=== PATIENT | female | born 1945 | race Caucasian/White ===

== ENCOUNTER 2018-09-26 16:12 | Inpatient (IN) ==
[2018-09-26 18:23] LABS: BASO# 0.04 X1000 (0.0-0.2); BASO% 0.4 % (0.0-0.8); EOS# 0.03 X1000 (0.0-0.7); EOS% 0.3 % (0.0-10.0); HEMOGLOBIN 16.1 g/dL (12.0-16.0); IMM GRAN# 0.02 X1000 (0.0-0.04); IMM GRAN% 0.2 % (0.0-0.5); LYMPH# 1.44 X1000 (1.2-3.4); LYMPH% 12.7 % (20.5-51.1); MCH 28.6 PG (27-31); MCHC 32.2 g/dL (33-37); MCV 88.8 FL (81-99); MONO# 0.34 X1000 (0.11-0.59); NEUT# 9.49 X1000 (1.4-6.5); NEUT% 83.4 % (42.2-75.2); PLT 247 X1000 (130-400); RBC 5.63 XMIL (4.2-5.4); WBC 11.36 X1000 (4.8-10.8)
[2018-09-26 18:32] LABS: ALLEN TEST YES; BE 11.3 mmoll (-3.0-3.0); BLOOD TYPE ARTERIAL; HCO3-(ACT) 33.4 mmoll (20.0-26.0); METHB 1.3 % (0.0-1.5); O2(CT) 20.1 mL/dL (15.0-23.0); PO2(98.6) 67 mmHg (60-100); SAMPLE BLOOD; SAO2 96.6 % (95.0-100.0); THB 16.3 g/dL (11.5-17.4); pH(98.6) 7.43 (7.35-7.45)
[2018-09-26 18:33] LABS: MODALITY CANNULA
[2018-09-26 18:35] LABS: PCO2(98.6) 58 mmHg (35-45)
[2018-09-26 18:36] LABS: O2HB 87.8 % (95.0-99.0)
[2018-09-26 18:47] LABS: AGAP 11; ALB/GLOB RATIO 1.1; ALBUMIN 4.3 g/dL (3.5-5.0); ALKALINE PHOSPHATASE 74 U/L (32-104); BUN 12 mg/dL (8-22); CALCIUM 9.8 mg/dL (8.8-10.2); CHLORIDE 94 mmol/L (98-107); COSMO 288; CREATININE 0.8 mg/dL (0.5-0.9); ESTIMATED GFR > 60; GLUCOSE 194 mg/dL (70-104); GOT 14 U/L (10-30); GPT 11 U/L (10-36); POTASSIUM 4.3 mmol/L (3.5-5.1); SODIUM 142 mmol/L (136-145); TCO2 37 mmol/L (25-35); TOTAL BILIRUBIN 0.29 mg/dL (0.20-1.00); TOTAL PROTEIN 8.1 g/dL (6.3-8.3)
[2018-09-26 20:00] LABS: URINE SOURCE CLEAN CATCH
[2018-09-26 20:04] LABS: BILIRUBIN URINE NEGATIVE (NEGATIVE); BLOOD URINE NEGATIVE (NEGATIVE); COLOR YELLOW; GLUCOSE URINE NEGATIVE (NEGATIVE); KETONE URINE NEGATIVE (NEGATIVE); LEUKOCYTES URINE NEGATIVE (NEGATIVE); NITRITE URINE NEGATIVE (NEGATIVE); PH URINE 6.5; PROTEIN URINE TRACE mg/dL (NEGATIVE); SP GRAVITY URINE 1.007; TURBIDITY URINE CLEAR (CLEAR); UR EPITHELIAL CELLS <10 /HPF (<10); URINE BACTERIA 1+ /HPF; URINE RBC <10 /HPF (<10); URINE WBC <10 /HPF (<10); UROBILINOGEN URINE NORMAL (NORMAL)
[2018-09-26] MEDS: ROCEPHIN 1 GM in NS 50 ML IV SCH (20:23)
[2018-09-26] MEDS: SOLU-MEDROL IV SCH (20:23)
[2018-09-26] MEDS: NEURONTIN PO SCH (20:24)
[2018-09-26] MEDS ORDERED: VALIUM PO SCH (21:00)
[2018-09-26] MEDS: DUONEB (A & A) INH SCH (22:45)
[2018-09-27] MEDS: SOLU-MEDROL IV SCH ×4 (02:51→20:31)
[2018-09-27] MEDS: DUONEB (A & A) INH SCH ×4 (03:17→22:23)
[2018-09-27] MEDS: NORCO-7.5 PO PRN ×2 (03:55→20:31)
--- NOTE | 2018-09-27 07:42 | EKG Report ---
Test Performed on : 09/26/2018 6:11:22 PM Test Reason : COPD Blood Pressure : / mmHG Vent. Rate : 104 BPM Atrial Rate : 104 BPM P-R Int : 132 ms QRS Dur : 088 ms QT Int : 368 ms P-R-T Axes : 069 073 068 degrees QTc Int : 483 ms Sinus tachycardia. Otherwise normal ECG When compared with ECG of 23-APR-2018 17:47, No significant change was found Unconfirmed Result
[2018-09-27] MEDS: NEURONTIN PO SCH ×3 (08:43→20:31)
--- NOTE | 2018-09-27 09:43 | PROGRESS NOTE ---
DATE: 09/27/2018 Ms. Recinos when she was seen in the office, her O2 saturation was 87 with her using oxygen 2 L per nasal cannula. She has severe COPD, and has persistent cough. She has acute exacerbation. We are treating her with IV antibiotics as well as steroids and respiratory therapy. We will have a Pulmonary consult on her. The arterial blood gases revealed pH 7.43, pCO2 58, and PO2 is 67. -5 cc: Gerardo Helton MD
--- NOTE | 2018-09-27 10:02 | HISTORY AND PHYSICAL ---
Ms. Recinos is a 73-year-old white female, was admitted with severe shortness of breath. She came to the office with persistent cough with expectoration, shortness of breath. She has been using breathing treatments at home, has been on oxygen. Her O2 sat was 87. She was in respiratory failure with acute exacerbation of COPD and so we decided to admit her to the hospital. She continues to smoke some. PAST SURGICAL HISTORY: Cholecystectomy. She had bilateral multiple knee surgeries as well as surgeries on her feet and the left hand. The knee surgeries were for arthritis. Most of them were arthroscopic surgeries. She also had a fracture of the of the left knee. PAST MEDICAL HISTORY: She has COPD for a long time now. She also has borderline diabetes and she does not drink. ALLERGIES: She is allergic to colistimethate, ibuprofen, levofloxacin. MEDICATIONS: Include DuoNeb, Valium, gabapentin, Osprey 7.5. REVIEW OF SYSTEMS: Other than shortness of breath, cough with expectoration, it is noncontributory. PHYSICAL EXAMINATION: VITAL SIGNS: Reveal temperature normal, pulse 77 per minute, blood pressure 128/55. HEENT: Head normocephalic. Pupils PERRLA. Fundus examination normal. NECK: Supple. JVP normal. ENT: Examination unremarkable. There is no evidence of lymphadenopathy, thyroid enlargement, pedal edema, calf tenderness, anemia or clubbing. There is mild cyanosis. BREAST EXAM: Normal chest, normal inspection. LUNGS: Reveal bilateral expiratory wheezing. PMI in the normal position. HEART: Sounds normal. No murmur, gallop or rub noted. ABDOMEN: Nondistended. Hernial orifices normal. No guarding, rigidity, free fluid, masses, or organomegaly. Bowel sounds normal. RECTAL: Deferred. INTERVENTIONAL RADIOLOGY TECHNOLOGIST: Higher functions normal. Cranial nerves normal. Motor and sensory system examination unremarkable. Deep tendon reflexes normal. Plantars downgoing. Skull and spine examination normal for age. No cerebellar signs or signs of meningeal irritation on locomotor exam. SKIN: Unremarkable. CLINICAL IMPRESSION: 1. Acute respiratory failure. 2. Acute exacerbation of COPD. 3. Borderline diabetes. PLAN: Start IV steroids, antibiotics and respiratory therapy. cc: Gerardo Helton MD
--- NOTE | 2018-09-27 10:13 | Diag Imaging Result Doc PS360 ---
CHEST-2 VIEWS - 09/26/2018 INDICATION: COPD COMPARISON: 06/18/2018 FINDINGS: There has been resolution of the opacification in the lateral left costophrenic angle. There is some persistent linear atelectasis in the right midlung. There are persistent increased markings in the lung bases bilaterally suggesting mild pulmonary edema, fibrosis, or bronchitis. Heart size is top normal. No pneumothorax or pleural effusion. IMPRESSION: Slight improvement from prior. Electronically signed by Spenser Garcia 09/27/2018 10:11 AM
[2018-09-27] MEDS: NICODERM PATCH TD SCH (11:29)
[2018-09-27] MEDS: VALIUM PO SCH ×2 (14:42→20:31)
[2018-09-27 15:45] LABS: URINE BACTERIA NEGATIVE /HFP; URINE CAST NONE SEEN /LPF; URINE CRYSTAL NONE SEEN /HPF; URINE EPITHELIAL CELLS <10 /HPF (<10); URINE RBC <10 /HPF (<10); URINE YEAST NONE SEEN /HPF
--- NOTE | 2018-09-27 18:48 | CONSULTATION ---
DATE OF CONSULTATION: 09/27/2018 REQUESTING PROVIDER: Dr. Gerardo Helton. REASON FOR CONSULTATION: COPD exacerbation. HISTORY OF PRESENT ILLNESS: This is a 73-year-old female with a medical history of COPD, chronic hypoxemic hypercapnic respiratory failure, morbid obesity, diabetes, hypertension, osteoarthritis, recurrent urinary tract infections, chronic pain syndrome, severe anxiety, and peripheral arterial disease. She has been directly admitted from Dr. Helton's office since yesterday with severe shortness of breath and persistent cough with expectoration. Initially workup revealed acute on chronic hypoxemic respiratory failure secondary to COPD exacerbation. At the time of my examination, she reports increasing oxygen requirement at home from 2L up to 3L. she reported drippling and oliguria in the last couple of weeks. She also reports severe weakness and tiredness in last couple days. She says she has CPAP at home but she barely uses is because she cannot tolerate it. She reports no nausea, vomiting, diarrhea, chest pain, or palpitation. PAST MEDICAL/SURGICAL HISTORY: 1. COPD with ongoing tobacco use, on home oxygen and Breo. 2. Chronic hypoxemic hypercapnic respiratory failure. On continuous oxygen of 2L at home. 3. Morbid obesity, BMI 36.74. 4. Diabetes. 5. Hypertension. 6. Osteoarthritis. 7. Recurrent urinary tract infections. 8. Chronic pain syndrome, on Lyford 7.5. 9. Anxiety. 10. Peripheral arterial disease in both legs. 11. Toe surgery. 12. Left neck surgery for a fracture through the lower part of the thigh into the knee joint. 13. Cholecystectomy. SOCIAL HISTORY: Ongoing tobacco use. No alcohol or illicit drug use. FAMILY HISTORY: Reviewed and noncontributory. ALLERGIES: Colistimethate sodium, ibuprofen, levofloxacin. REVIEW OF SYSTEMS: A 10 point review of systems was conducted and the pertinent is listed within the HPI, otherwise noncontributory. PHYSICAL EXAMINATION: Vital Signs: Temperature 97.1 degrees, blood pressure 138/63, pulse 93, respiratory rate 18, oxygen saturation 90% on nasal cannula at 2 L. General: Obese, resting comfortably in bed, in no acute distress. Later patient's granddaughter came inside the room. They apparently had some arguing going on and the patient became anxious. HEENT: Atraumatic. Trachea midline. Mucosa pink and dry. Respiratory: Lung expansion equal bilaterally. Auscultation revealed diminished breathing sounds bilaterally, prolonged expiratory phase, scattered wheezing, and rhonchi. Cardiovascular: Regular rate and rhythm. Distant heart sounds. Gastrointestinal: Normoactive bowel sounds in all 4 quadrants, semi-formed. Distended with tenderness on palpation. Extremities: No pedal edema. No cyanosis. No clubbing noted. Neurologic: Alert and oriented x3. Speech fluent. Follow commands. IMAGING DATA: Chest x-ray from yesterday revealed resolution of the opacification in the lateral low costophrenic angle. Some persistent linear atelectasis in the right mid lung. Persistent increased markings in the lung bases bilaterally suggesting mild pulmonary edema, fibrosis, or bronchitis. ASSESSMENT: This is a 73-year-old female with a medical history of COPD and chronic hypoxemic hypercapnic respiratory failure, morbid obesity, diabetes, hypertension, osteoarthritis, recurrent urinary tract infection, chronic pain syndrome, severe anxiety, and peripheral arterial disease. She has been directly admitted from Dr. Helton's office for chronic obstructive pulmonary disease exacerbation. 1. Chronic obstructive pulmonary disease exacerbation. 2. Tobacco abuse. 3. Acute on chronic hypoxemic hypercapnic respiratory failure. Improved. On 2L oxygen now. PLAN: 1. Continue supplemental oxygen as needed. 2. BiPAP at bedtime and as needed. 3. Educate patient on the importance and the means of smoking cessation. 4. Follow up with chest x-ray, ABG, CBC and BMP. 5. Continue antibiotics, steroid, and bronchodilators. 6. Continue GI and DVT prophylaxis. 7. Further recommendations pending her hospital course. Thank you for the courtesy of this consult. Dictated by JOSEFA Mcihael for Abdelrahman Sierra MD cc: JOSEFA Michael MD Amit V. Vora, MD [facility] H[facility]PITALSaravanan
[2018-09-27] MEDS: DESYREL PO SCH (20:31)
[2018-09-27] MEDS: ROCEPHIN 1 GM in NS 50 ML IV SCH (20:32)
[2018-09-28] MEDS: DUONEB (A & A) INH SCH ×4 (03:03→22:13)
[2018-09-28] MEDS: SOLU-MEDROL IV SCH ×3 (03:06→17:09)
[2018-09-28] MEDS ORDERED: NICODERM PATCH TD SCH (09:00)
[2018-09-28] MEDS: VALIUM PO SCH ×2 (10:16→21:37)
[2018-09-28] MEDS: NORCO-7.5 PO PRN ×2 (10:17→16:10)
[2018-09-28] MEDS: NEURONTIN PO SCH ×3 (10:17→21:37)
[2018-09-28] MEDS: NICODERM PATCH TD SCH (10:17)
[2018-09-28] MEDS ORDERED: SOLU-MEDROL IV SCH (11:15)
--- NOTE | 2018-09-28 11:30 | PROGRESS NOTE ---
DATE: 09/28/2018 SUBJECTIVE: Ms. Recinos Is doing better. She has chronic respiratory failure with acute exacerbation now. Physical exam otherwise is unchanged. She is getting diazepam 5 mg b.i.d., and I personally do not feel like we need to increase anything at bedtime. She is asking for something more for sleep. She is on methylprednisone, which we will try to cut down on the dose of methylprednisone. -4 cc: Gerardo Helton MD
[2018-09-28] MEDS ORDERED: LINZESS PO ONE (16:20)
[2018-09-28] MEDS: ROCEPHIN 1 GM in NS 50 ML IV SCH (21:33)
[2018-09-28] MEDS: DESYREL PO SCH (21:37)
[2018-09-29] MEDS: NORCO-7.5 PO PRN ×4 (01:05→22:03)
[2018-09-29] MEDS: DUONEB (A & A) INH SCH ×4 (03:27→21:50)
[2018-09-29] MEDS: SOLU-MEDROL IV SCH ×3 (06:11→21:56)
[2018-09-29] MEDS: LOVENOX SUBQ SCH (06:11)
[2018-09-29] MEDS: LINZESS PO SCH (06:11)
[2018-09-29] MEDS: NEURONTIN PO SCH ×3 (08:10→21:56)
[2018-09-29] MEDS: VALIUM PO SCH ×2 (08:10→21:56)
[2018-09-29] MEDS: NICODERM PATCH TD SCH (08:11)
--- NOTE | 2018-09-29 12:52 | PROGRESS NOTE ---
DATE: 09/29/2018 Ms. Recinos is having some respiratory distress. She had to be on the BiPAP last night. She has moved her bowels now. We are trying to cut down on her steroids. Overall condition is unchanged. Continue with the current management on her. -9 cc: Gerardo Helton MD
[2018-09-29] MEDS: ZOFRAN PO PRN (15:30)
--- NOTE | 2018-09-29 16:51 | PULMONOLOGY PROGRESS NOTE ---
DATE: 09/29/2018 SUBJECTIVE: The patient is awake, alert, and conversant. She reports her shortness of breath has diminished. OBJECTIVE: Vital Signs: BP 114/42, heart rate 87, respiratory rate 16, oxygen saturation 94% on 3 L per nasal cannula. HEENT: Pupils are equal and reactive. Oropharynx is clear. Neck: Is supple. Chest: Reveals prolonged expiratory phase with bilateral wheezing. Cardiac: S1, S2. Abdomen: Obese and soft. Extremities: Without edema. IMPRESSION: A 73-year-old with chronic obstructive pulmonary disease exacerbation, acute hypoxemic respiratory failure, ongoing tobacco use, and obesity. RECOMMENDATION: 1. Agree with steroid weaning as you are doing. 2. Continue oxygen for hypoxemic respiratory failure. 3. Strongly encouraged patient to discontinue all tobacco products. cc: MD Gerardo Tadeo MD
[2018-09-29] MEDS: KLOR-CON PO SCH (21:56)
[2018-09-29] MEDS: ROCEPHIN 1 GM in NS 50 ML IV SCH (21:56)
[2018-09-29] MEDS: DESYREL PO SCH (21:56)
[2018-09-30] MEDS: ZOFRAN PO PRN (02:40)
[2018-09-30] MEDS: DUONEB (A & A) INH SCH ×4 (03:54→22:40)
[2018-09-30] MEDS: LINZESS PO SCH ×3 (05:54→09:07)
[2018-09-30] MEDS: SOLU-MEDROL IV SCH ×2 (05:54→17:24)
[2018-09-30] MEDS: LOVENOX SUBQ SCH ×2 (05:54→05:59)
[2018-09-30 06:50] LABS: AGAP 7; BUN 22 mg/dL (8-22); CALCIUM 9.1 mg/dL (8.8-10.2); CHLORIDE 95 mmol/L (98-107); COSMO 296; CREATININE 0.7 mg/dL (0.5-0.9); ESTIMATED GFR > 60; GLUCOSE 332 mg/dL (70-104); POTASSIUM 4.7 mmol/L (3.5-5.1); SODIUM 140 mmol/L (136-145); TCO2 38 mmol/L (25-35)
[2018-09-30] MEDS: VALIUM PO SCH ×2 (09:06→22:06)
[2018-09-30] MEDS: KLOR-CON PO SCH ×2 (09:06→22:06)
[2018-09-30] MEDS: NICODERM PATCH TD SCH (09:07)
[2018-09-30] MEDS: NORCO-7.5 PO PRN ×3 (09:07→22:06)
[2018-09-30] MEDS: NEURONTIN PO SCH ×3 (09:07→22:06)
--- NOTE | 2018-09-30 12:20 | PROGRESS NOTE ---
DATE: 09/30/2018 SUBJECTIVE: Ms. Recinos is doing better. She says she is feeling weak. We are cutting down on the steroids as respirations are improving. She has some bilateral wheezing. She was seen by Dr. Guy yesterday. She is indicating the desire to go to the rehab. We will probably have to ask for Physical Therapy to see her. -4 cc: Gerardo Helton MD
--- NOTE | 2018-09-30 20:15 | PULMONOLOGY PROGRESS NOTE ---
DATE: 09/30/2018 SUBJECTIVE: The patient reports some nausea and is holding off on using her BiPAP today. She reports her breathing has improved. OBJECTIVE: Vital Signs: The patient has been afebrile for the last 24 hours. Blood pressure 116/53, heart rate 89, respiratory rate 18, oxygen saturation 91% on 3 L per nasal cannula. HEENT: Pupils are equal and reactive. Oropharynx is clear. Neck: Supple. Chest: Reveals prolonged expiratory phase with expiratory wheezing present. Cardiac: S1, S2. Abdomen: Obese and soft. Extremities: Reveal trace edema. LABORATORIES: Sodium 140, potassium 4.7, chloride 95, bicarbonate 38, BUN 22, creatinine 0.7. IMPRESSION: A 73-year-old with COPD exacerbation, acute hypoxemic respiratory failure, obesity and ongoing tobacco use. RECOMMENDATIONS: 1. Continue current treatment regimen for COPD exacerbation. 2. Continue oxygen for hypoxemic respiratory failure. 3. Strongly encourage patient to discontinue all tobacco products. 4. Anticipate discharge to rehab if this can be arranged. cc: MD Gerardo Tadeo MD
[2018-09-30] MEDS: DESYREL PO SCH (22:06)
[2018-09-30] MEDS: ROCEPHIN 1 GM in NS 50 ML IV SCH (22:06)
[2018-10-01] MEDS: DUONEB (A & A) INH SCH ×4 (03:51→23:17)
[2018-10-01] MEDS: NORCO-7.5 PO PRN ×3 (04:07→15:54)
[2018-10-01] MEDS: SOLU-MEDROL IV SCH ×2 (06:14→17:02)
[2018-10-01] MEDS: LOVENOX SUBQ SCH (06:16)
[2018-10-01] MEDS: LINZESS PO SCH (06:16)
[2018-10-01] MEDS: NEURONTIN PO SCH ×3 (09:12→22:00)
[2018-10-01] MEDS: VALIUM PO SCH ×2 (09:13→22:08)
[2018-10-01] MEDS: NICODERM PATCH TD SCH (09:13)
[2018-10-01] MEDS: KLOR-CON PO SCH ×2 (09:13→22:01)
[2018-10-01] MEDS: MIRALAX PO SCH (09:13)
--- NOTE | 2018-10-01 09:14 | PROGRESS NOTE ---
DATE: 10/01/2018 Ms. Recinos's electrolyte status is normal. She was nauseous last night. Blood sugar has been elevated partly because of the steroids that she is getting. We are going to cut down further on the methylprednisolone that she is getting. We will continue with the current management. She wants to be placed in rehab also. She has chronic respiratory failure. She is a chronic smoker. Overall condition is unchanged. -4 cc: Gerardo Helton MD
[2018-10-01] MEDS: ROCEPHIN 1 GM in NS 50 ML IV SCH (21:56)
[2018-10-01] MEDS: DESYREL PO SCH (22:00)
--- NOTE | 2018-10-02 00:55 | PULMONOLOGY PROGRESS NOTE ---
DATE: 10/01/2018 SUBJECTIVE: The patient is awake and alert. She reports she had some nausea yesterday evening and did not wear the BiPAP. She reports she feels better today and her dyspnea has diminished. OBJECTIVE: Vital Signs: The patient has been afebrile for the last 24 hours. Blood pressure 133/64, heart rate 82, respiratory rate 16, oxygen saturation 92% on nasal cannula. HEENT: Pupils are equal and reactive. Oropharynx is clear. Neck: Is supple. Chest: Reveals prolonged expiratory phase. Her wheezing has significantly decreased. Cardiac exam: S1-S2. Abdomen: Is soft and obese. Extremities: Reveal trace edema. IMPRESSION: A 73-year-old with 1. Chronic obstructive pulmonary disease exacerbation. 2. Acute hypoxemic respiratory failure. 3. Ongoing tobacco use. 4. Obesity. The patient continues to improve. RECOMMENDATION: 1. Continue to encourage patient to stop smoking. 2. Agree with steroid taper as you are doing. 3. Wean oxygen as tolerated. 4. Anticipate discharge to rehab in the near future. cc: MD Gerardo Tadeo MD
[2018-10-02] MEDS: DUONEB (A & A) INH SCH ×4 (03:27→23:39)
[2018-10-02] MEDS: ZOFRAN PO PRN (04:58)
[2018-10-02] MEDS: SOLU-MEDROL IV SCH (06:02)
[2018-10-02] MEDS: LINZESS PO SCH (06:02)
[2018-10-02] MEDS: LOVENOX SUBQ SCH (06:02)
[2018-10-02] MEDS: NICODERM PATCH TD SCH (08:46)
[2018-10-02] MEDS: VALIUM PO SCH (08:46)
[2018-10-02] MEDS: KLOR-CON PO SCH ×2 (08:46→22:43)
[2018-10-02] MEDS: NEURONTIN PO SCH ×3 (08:46→22:43)
[2018-10-02] MEDS: MIRALAX PO SCH (08:46)
--- NOTE | 2018-10-02 09:03 | PROGRESS NOTE ---
DATE: 10/02/2018 SUBJECTIVE: Ms. Recinos is slowly improving. She has periods of drowsiness. She continues to smoke when she goes home. She has some expiratory wheezing. We are tapering her steroids, and I think we will keep her on oral prednisone for now. She is also being followed by Dr. Guy. -1 cc: Gerardo Helton MD
[2018-10-02 14:37] LABS: ALLEN TEST YES; BE 16.6 mmoll (-3.0-3.0); BLOOD TYPE ARTERIAL; HCO3-(ACT) 37.6 mmoll (20.0-26.0); O2(CT) 18.2 mL/dL (15.0-23.0); PO2(98.6) 59 mmHg (60-100); SAMPLE BLOOD; SAO2 92.9 % (95.0-100.0); THB 14.5 g/dL (11.5-17.4); pH(98.6) 7.32 (7.35-7.45)
[2018-10-02 14:42] LABS: MODALITY CANNULA; PCO2(98.6) 93 mmHg (35-45)
[2018-10-02] MEDS: ROCEPHIN 1 GM in NS 50 ML IV SCH (19:59)
--- NOTE | 2018-10-02 21:42 | PULMONOLOGY PROGRESS NOTE ---
DATE: 10/02/2018 SUBJECTIVE: The patient has had less nausea today. She is currently wearing the BiPAP. She is sleeping but arousable. OBJECTIVE: Vital Signs: The patient has been afebrile for the last 24 hours. Blood pressure 119/61, heart rate 71, respiratory rate 16, oxygen saturation 96% on BiPAP. HEENT: Pupils are equal and reactive. Oropharynx evaluation is limited with BiPAP in place. Neck: Supple. Chest: Reveals prolonged expiratory phase with distant wheezing. Cardiac exam: S1, S2. Abdomen: Obese and soft. Extremities: Reveal trace edema. LABORATORIES: No new chemistries. Arterial blood gas this afternoon revealed pH 7.32, pCO2 of 93, pO2 of 59. IMPRESSION: A 73-year-old with severe chronic obstructive pulmonary disease. The patient was slightly hypersomnolent today with increase in CO2, but not enough to explain her somnolence. Her Valium has been discontinued. Patient is likely very sensitive to benzodiazepines. RECOMMENDATIONS: 1. Continue BiPAP through the evening. 2. Encourage patient to discontinue tobacco. 3. Long-term patient would benefit from weight loss. 4. We will follow up with a chest x-ray and an arterial blood gas tomorrow morning. cc: MD Gerardo Tadeo MD
[2018-10-02] MEDS: NORCO-7.5 PO PRN (22:43)
[2018-10-02] MEDS: DESYREL PO SCH (22:44)
[2018-10-02] MEDS: PREDNISONE PO SCH (22:44)
[2018-10-03] MEDS: DUONEB (A & A) INH SCH ×4 (03:00→21:25)
[2018-10-03 05:11] LABS: ALLEN TEST YES; BE 15.3 mmoll (-3.0-3.0); BLOOD TYPE ARTERIAL; HCO3-(ACT) 36.8 mmoll (20.0-26.0); METHB 1.2 % (0.0-1.5); O2(CT) 19.3 mL/dL (15.0-23.0); O2HB 95.9 % (95.0-99.0); PO2(98.6) 109 mmHg (60-100); SAMPLE BLOOD; SAO2 99.2 % (95.0-100.0); THB 14.2 g/dL (11.5-17.4); pH(98.6) 7.35 (7.35-7.45)
[2018-10-03 05:12] LABS: MODALITY BI PAP
[2018-10-03 05:14] LABS: PCO2(98.6) 82 mmHg (35-45)
[2018-10-03] MEDS: LINZESS PO SCH (06:01)
[2018-10-03] MEDS: LOVENOX SUBQ SCH (06:01)
--- NOTE | 2018-10-03 07:07 | Diag Imaging Result Doc PS360 ---
EXAM: CHEST-PORTABLE 10/03/2018 HISTORY: abnormal exam TECHNIQUE: AP portable at 0607 COMMENT: There is severe COPD. The lungs are not as expanded as they were on 09/27/2018. There may be some atelectasis in the lower portion of the right upper lobe. Overall there has been no appreciable change otherwise since the previous study. IMPRESSION: COPD and right upper lobe atelectasis. Electronically signed by Tate Rosas 10/03/2018 7:05 AM
[2018-10-03 07:35] LABS: HEMATOCRIT 47.1 % (37.0-47.0); HEMOGLOBIN 14.3 g/dL (12.0-16.0); MCH 28.7 PG (27-31); MCHC 30.4 g/dL (33-37); MCV 94.4 FL (81-99); RBC 4.99 XMIL (4.2-5.4); RDW 13.2 % (11.5-14.5); WBC 10.14 X1000 (4.8-10.8)
[2018-10-03 08:01] LABS: ESTIMATED GFR > 60
[2018-10-03 08:04] LABS: AGAP 6; ALB/GLOB RATIO 1.6; ALKALINE PHOSPHATASE 77 U/L (32-104); BUN 28 mg/dL (8-22); CALCIUM 9.3 mg/dL (8.8-10.2); CHLORIDE 90 mmol/L (98-107); COSMO 293; CREATININE 0.7 mg/dL (0.5-0.9); GLUCOSE 276 mg/dL (70-104); GOT 20 U/L (10-30); GPT 78 U/L (10-36); MAGNESIUM 2.3 mg/dL (1.5-2.7); PHOSPHORUS 4.3 mg/dL (2.7-4.5); POTASSIUM 5.4 mmol/L (3.5-5.1); SODIUM 139 mmol/L (136-145); TCO2 43 mmol/L (25-35); TOTAL PROTEIN 6.5 g/dL (6.3-8.3)
[2018-10-03] MEDS: MIRALAX PO SCH (08:28)
[2018-10-03] MEDS: NORCO-7.5 PO PRN ×3 (08:29→21:03)
[2018-10-03] MEDS: NICODERM PATCH TD SCH (08:29)
[2018-10-03] MEDS: KLOR-CON PO SCH ×2 (08:30→21:02)
[2018-10-03] MEDS: NEURONTIN PO SCH ×3 (08:30→21:02)
--- NOTE | 2018-10-03 09:31 | PROGRESS NOTE ---
DATE: 10/03/2018 Ms. Recinos is doing better. The pCO2 has come down some with the help of BiPAP and she is much more alert today. We are going to continue, repeat the blood gases in the morning. -0 cc: Gerardo Helton MD
[2018-10-03 10:14] LABS: O2HB 89.5 % (95.0-99.0)
[2018-10-03 10:23] LABS: ALLEN TEST NO; BE 15.8 mmoll (-3.0-3.0); BLOOD TYPE ARTERIAL; HCO3-(ACT) 37.1 mmoll (20.0-26.0); METHB 1.3 % (0.0-1.5); O2(CT) 18.9 mL/dL (15.0-23.0); PO2(98.6) 63 mmHg (60-100); SAMPLE BLOOD; SAO2 95.5 % (95.0-100.0); THB 14.6 g/dL (11.5-17.4); pH(98.6) 7.42 (7.35-7.45)
[2018-10-03 10:28] LABS: MODALITY CANNULA; PCO2(98.6) 68 mmHg (35-45)
[2018-10-03] MEDS ORDERED: VANCOMYCIN IV PER PHARMACY MISC SCH (10:45)
[2018-10-03] MEDS: VANCOMYCIN 1,500 MG in NS 250 ML IV SCH (12:39)
[2018-10-03] MEDS: ROCEPHIN 1 GM in NS 50 ML IV SCH (21:02)
[2018-10-03] MEDS: DESYREL PO SCH (21:02)
[2018-10-03] MEDS: PREDNISONE PO SCH (21:03)
--- NOTE | 2018-10-03 22:10 | PULMONOLOGY PROGRESS NOTE ---
DATE: 10/03/2018 SUBJECTIVE: The patient reports she has had a better day today. She has been spending time on and off the BiPAP as tolerated. She is taking p.o. intake without nausea. OBJECTIVE: Vital Signs: Blood pressure 125/59, heart rate 87, respiratory rate 16, oxygen saturation 95% on nasal cannula. HEENT: Pupils are equal and reactive. Oropharynx is clear. Neck: Supple. Chest: Reveals prolonged expiratory phase with faint distal wheezing. Cardiac exam: S1, S2. Abdomen: Soft and without hepatosplenomegaly. Extremities: Reveal trace to 1+ peripheral edema. LABORATORIES: Chest x-ray was a portable film. Shallow inspiration. There may be atelectasis in the right upper lobe as outlined by the radiologist. White blood count 10.14, hemoglobin 14.3, platelet count 162,000. Arterial blood gas, pH 7.42, pCO2 of 68, pO2 of 63. Sodium 139, potassium 5.4, chloride 90, bicarbonate 43, creatinine 0.7, BUN 28. Microbiology: No new data. IMPRESSION: A 73-year-old with: 1. Severe chronic obstructive pulmonary disease. 2. Acute hypercapnic respiratory failure. 3. Chronic hypoxemic respiratory failure. 4. Possible mild atelectasis on chest x-ray. RECOMMENDATIONS: 1. Continue BiPAP at bedtime and p.r.n. 2. Discontinue all tobacco products. 3. Continue current steroids and bronchodilators. 4. We will obtain a two-view chest x-ray tomorrow morning. cc: MD Gerardo Tadeo MD
[2018-10-04] MEDS: DUONEB (A & A) INH SCH ×4 (03:15→22:58)
[2018-10-04] MEDS: LINZESS PO SCH (06:27)
[2018-10-04] MEDS: LOVENOX SUBQ SCH (06:27)
--- NOTE | 2018-10-04 08:08 | Diag Imaging Result Doc PS360 ---
CHEST-2 VIEWS - 10/04/2018 INDICATION: abnormal exam COMPARISON: 10/03/2018, 09/27/2018 FINDINGS: Stable advanced COPD. Stable increased markings in the lung bases. No new infiltrates. Heart size remains normal. IMPRESSION: No change from prior exams. Electronically signed by Spenser Garcia 10/04/2018 8:06 AM
[2018-10-04] MEDS: MIRALAX PO SCH (09:45)
[2018-10-04] MEDS: NICODERM PATCH TD SCH (09:46)
[2018-10-04] MEDS: NORCO-7.5 PO PRN ×2 (09:46→15:36)
--- NOTE | 2018-10-04 09:46 | PROGRESS NOTE ---
DATE: 10/04/2018 SUBJECTIVE: Ms. Recinos is improving. She had a chest x-ray done early this morning, which does not show any change from the prior. She has significant COPD. No definite infiltrates noted. Her last blood gases revealed pCO2 is coming down. It Is down to 68, however, the baseline was 58 or lower. We are going to repeat the blood gases again. In the meantime we will continue the BiPAP at night. If she continues to improve we may discharge her to rehab tomorrow. cc: Gerardo Helton MD
[2018-10-04] MEDS: NEURONTIN PO SCH ×3 (09:47→22:32)
[2018-10-04] MEDS: KLOR-CON PO SCH ×2 (09:47→22:33)
[2018-10-04 10:08] LABS: ALLEN TEST YES; BE 16.9 mmoll (-3.0-3.0); BLOOD TYPE ARTERIAL; HCO3-(ACT) 37.8 mmoll (20.0-26.0); O2(CT) 17.6 mL/dL (15.0-23.0); PO2(98.6) 52 mmHg (60-100); SAMPLE BLOOD; SAO2 90.9 % (95.0-100.0); THB 14.3 g/dL (11.5-17.4); pH(98.6) 7.42 (7.35-7.45)
[2018-10-04 10:09] LABS: MODALITY CANNULA; O2HB 87.8 % (95.0-99.0); PCO2(98.6) 70 mmHg (35-45)
[2018-10-04] MEDS: VANCOMYCIN 1,500 MG in NS 250 ML IV SCH (11:43)
[2018-10-04] MEDS: ROCEPHIN 1 GM in NS 50 ML IV SCH (22:33)
[2018-10-04] MEDS: PREDNISONE PO SCH (22:33)
[2018-10-04] MEDS: AMBIEN PO PRN (22:33)
[2018-10-05] MEDS: DESYREL PO SCH ×2 (00:15→20:42)
[2018-10-05] MEDS: DUONEB (A & A) INH SCH ×4 (03:05→21:04)
[2018-10-05 04:38] LABS: ALLEN TEST YES; BE 13.8 mmoll (-3.0-3.0); BLOOD TYPE ARTERIAL; HCO3-(ACT) 35.6 mmoll (20.0-26.0); METHB 1.1 % (0.0-1.5); O2HB 93.6 % (95.0-99.0); PO2(98.6) 71 mmHg (60-100); SAMPLE BLOOD; SAO2 96.9 % (95.0-100.0); THB 14.4 g/dL (11.5-17.4)
[2018-10-05 04:39] LABS: MODALITY BI PAP
[2018-10-05 04:40] LABS: PCO2(98.6) 68 mmHg (35-45)
[2018-10-05] MEDS: LINZESS PO SCH (05:59)
[2018-10-05] MEDS: LOVENOX SUBQ SCH (05:59)
[2018-10-05] MEDS: MIRALAX PO SCH (08:10)
[2018-10-05] MEDS: NEURONTIN PO SCH ×3 (08:11→20:43)
[2018-10-05] MEDS: KLOR-CON PO SCH ×2 (08:12→20:42)
[2018-10-05] MEDS: NORCO-7.5 PO PRN ×3 (08:13→20:43)
[2018-10-05] MEDS: NICODERM PATCH TD SCH (08:18)
[2018-10-05] MEDS: VANCOMYCIN 1,500 MG in NS 250 ML IV SCH (10:58)
--- NOTE | 2018-10-05 11:58 | PROGRESS NOTE ---
DATE: 10/05/2018 SUBJECTIVE: Ms. Recinos has sepsis. She is on IV vancomycin. She has acute on chronic respiratory failure and acute exacerbation with COPD. Overall condition is unchanged. OBJECTIVE: Her lungs still reveal some wheezing. Repeat blood gases had revealed a pCO2 of 70, pCO2 of 68. This morning we have not got the final results on the last blood gases drawn. Her lactate level has gone up to 3 but right now it is 1.7. Overall condition is about the same. She uses BiPAP. However, she insists on getting the sleeping pills which depresses her respirations. ASSESSMENT AND PLAN: Overall condition is stable though at the present time we are going to continue IV vancomycin for next 2 days and then decide about sending her to the assisted on Monday for rehab. cc: Gerardo Helton MD
[2018-10-05] MEDS ORDERED: DIAMOX IV ONE (18:02)
[2018-10-05] MEDS ORDERED: STERILE WATER INJ. INJ ONE (18:15)
--- NOTE | 2018-10-05 18:36 | PULMONOLOGY PROGRESS NOTE ---
DATE: 10/05/2018 SUBJECTIVE: The patient reports she has had some clinical improvement. She has been able to ambulate short distances in the hallway with physical therapy. OBJECTIVE: Vital Signs: The patient has been afebrile for the last 24 hours. Blood pressure 127/63, heart rate 76, respiratory rate 18, oxygen saturation 93% on 2 L per nasal cannula. HEENT: Pupils are equal and reactive. Oropharynx appears clear. Neck: Supple. Chest: Reveals diminished breath sounds bilaterally. Cardiac: S1 and S2. Abdomen: Soft and obese. Extremities: Without edema. LABORATORIES: Chest x-ray yesterday revealed hyperinflation with flattening of the diaphragms with no acute change. No new chemistry. No new CBC. Arterial blood gas reveals pH 7.4, pCO2 of 68, and PO2 of 71 on BiPAP. IMPRESSION: 1. A 73-year-old with severe chronic obstructive pulmonary disease. 2. Acute hypercapnic respiratory failure. 3. Chronic hypercapnic respiratory failure. 4. No acute changes on chest x-ray. RECOMMENDATION: 1. Continue BiPAP every night at bedtime and p.r.n. 2. Encourage patient to discontinue tobacco. 3. Encourage weight loss for obesity and a BMI of 37. 4. Agree with current steroids and bronchodilators. 5. Anticipate discharge early next week if she continues to improve. cc: MD Gerardo Tadeo MD
[2018-10-05] MEDS: AMBIEN PO PRN (20:42)
[2018-10-05] MEDS: PREDNISONE PO SCH (20:43)
[2018-10-05] MEDS: ROCEPHIN 1 GM in NS 50 ML IV SCH (20:43)
[2018-10-06] MEDS: DUONEB (A & A) INH SCH ×4 (03:05→21:11)
[2018-10-06] MEDS: LOVENOX SUBQ SCH (05:59)
[2018-10-06] MEDS: NORCO-7.5 PO PRN ×3 (05:59→23:33)
[2018-10-06] MEDS: LINZESS PO SCH (05:59)
[2018-10-06 07:33] LABS: BASO# 0.01 X1000 (0.0-0.2); BASO% 0.1 % (0.0-0.8); EOS# 0.19 X1000 (0.0-0.7); EOS% 1.5 % (0.0-10.0); HEMOGLOBIN 13.5 g/dL (12.0-16.0); IMM GRAN# 0.32 X1000 (0.0-0.04); IMM GRAN% 2.6 % (0.0-0.5); LYMPH# 1.52 X1000 (1.2-3.4); LYMPH% 12.4 % (20.5-51.1); MCH 28.3 PG (27-31); MCHC 30.7 g/dL (33-37); MCV 92.2 FL (81-99); MONO# 0.91 X1000 (0.11-0.59); MONO% 7.4 % (1.7-9.3); NEUT# 9.33 X1000 (1.4-6.5); PLT 169 X1000 (130-400); RBC 4.77 XMIL (4.2-5.4); RDW 13.8 % (11.5-14.5); WBC 12.28 X1000 (4.8-10.8)
[2018-10-06 08:07] LABS: AGAP 14; BUN 21 mg/dL (8-22); CALCIUM 8.8 mg/dL (8.8-10.2); CHLORIDE 101 mmol/L (98-107); COSMO 294; CREATININE 0.7 mg/dL (0.5-0.9); ESTIMATED GFR > 60; GLUCOSE 214 mg/dL (70-104); POTASSIUM 4.2 mmol/L (3.5-5.1); SODIUM 143 mmol/L (136-145); TCO2 28 mmol/L (25-35)
[2018-10-06] MEDS: NEURONTIN PO SCH ×3 (10:16→20:00)
[2018-10-06] MEDS: KLOR-CON PO SCH ×2 (10:16→19:59)
[2018-10-06] MEDS: NICODERM PATCH TD SCH (10:16)
[2018-10-06] MEDS: MIRALAX PO SCH (10:17)
--- NOTE | 2018-10-06 11:43 | PROGRESS NOTE ---
DATE: 10/06/2018 SUBJECTIVE: Ms Recinos is a 73-year-old white female patient, admitted with increasing cough, chest congestion, increasing shortness of breath, decreased exercise tolerance. The patient was hypoxemic. She was not responding to outpatient treatment. The patient is getting steroid IV antibiotics, pulmonary toilet. Her clinical condition improving some. The patient is also getting BiPAP at night. The patient denied any high-grade fever or chills. Does get short of breath with undue exertion. No nausea or vomiting. The patient did have good bowel movement. Her admission history and physical, Pulmonary consult noted. PAST MEDICAL HISTORY: Significant for COPD and NIDDM, osteoarthritis. PHYSICAL EXAMINATION: Vital signs: Blood pressure 136/61, pulse 81, respiration 18, temperature 97.6 degrees. Skin: Senile turgor. Neck: Supple. No JVD. Lungs: Bilateral good air entry present. Cardiovascular: S1 and S2 heard. Abdomen: Soft, globular. Bowel sounds present. Extremities: No cyanosis, clubbing. No acute DVT. Minimal swelling around ankle. Central nervous system: Alert, awake, answering questions fairly well. LABORATORY DATA: Done today, WBC count 12.28, hemoglobin 13.5, hematocrit 44, platelet count 169,000. Electrolytes were fairly benign. BUN was 21, creatinine 0.7. PROBLEMS: Include: 1. Chronic obstructive pulmonary disease exacerbation. 2. Acute on chronic respiratory failure. 3. Metabolic syndrome. 4. Morbid obesity. PLAN: Plan is to send patient to rehab on Monday if clinical condition permits. Continue rest of the treatment and close observation. cc: MD Gerardo Loo MD
[2018-10-06] MEDS ORDERED: MYCOSTATIN SUSP PO SCH (13:00)
[2018-10-06] MEDS: VANCOMYCIN 1,500 MG in NS 250 ML IV SCH (13:31)
[2018-10-06 15:16] LABS: ALLEN TEST YES; BE 6.4 mmoll (-3.0-3.0); BLOOD TYPE ARTERIAL; HCO3-(ACT) 29.8 mmoll (20.0-26.0); METHB 1.4 % (0.0-1.5); O2HB 92.7 % (95.0-99.0); PO2(98.6) 69 mmHg (60-100); SAMPLE BLOOD; SAO2 96.6 % (95.0-100.0); THB 13.8 g/dL (11.5-17.4); pH(98.6) 7.31 (7.35-7.45)
[2018-10-06 15:20] LABS: PCO2(98.6) 70 mmHg (35-45)
[2018-10-06] MEDS ORDERED: PREDNISONE PO ONE (15:35)
[2018-10-06] MEDS: MYCOSTATIN SUSP PO SCH ×2 (17:02→20:00)
[2018-10-06] MEDS: ROCEPHIN 1 GM in NS 50 ML IV SCH (19:48)
[2018-10-06] MEDS: PREDNISONE PO SCH (19:59)
[2018-10-06] MEDS: DESYREL PO SCH (20:00)
--- NOTE | 2018-10-06 20:08 | PULMONOLOGY PROGRESS NOTE ---
DATE: 10/06/2018 SUBJECTIVE: The patient reports her breathing has improved. She is complaining of thrush/oral mouth pain. She reports her shortness of breath has diminished. OBJECTIVE: Vital Signs: The patient has been afebrile for the last 24 hours. Blood pressure 112/52, heart rate 72, respiratory rate 16, oxygen saturation 98% on 4 L per nasal cannula. HEENT: Pupils are equal and reactive. Oropharynx is clear. Neck: Is supple. Chest: Reveals prolonged expiratory phase bilaterally. Cardiac exam: S1-S2. Abdomen: Is soft and obese. Extremities: Without edema. LABORATORIES: Sodium 143, potassium 4.2, chloride 101, bicarbonate 28, BUN 21, creatinine 0.7, serum bicarbonate 28. IMPRESSION: 73-year-old with 1. Severe chronic obstructive pulmonary disease. 2. Acute hypercapnic respiratory failure. 3. Acute hypoxemic respiratory failure. 4. Chronic hypercapnic and chronic hypoxemic respiratory failure. The patient has continued slow improvement. RECOMMENDATIONS: 1. Continue BiPAP at bedtime and p.r.n. 2. Encourage patient to lose weight. 3. Encourage weight loss. 4. Continue current steroids and bronchodilators. 5. Anticipate discharge to rehab Monday. cc: MD Gerardo Tadeo MD
[2018-10-07] MEDS: DUONEB (A & A) INH SCH ×4 (03:45→21:15)
[2018-10-07] MEDS: LINZESS PO SCH (06:14)
[2018-10-07] MEDS: LOVENOX SUBQ SCH (06:14)
[2018-10-07] MEDS: VANCOMYCIN 1,500 MG in NS 250 ML IV SCH ×2 (06:14→22:59)
[2018-10-07] MEDS: NEURONTIN PO SCH ×3 (10:11→20:12)
[2018-10-07] MEDS: NICODERM PATCH TD SCH (10:11)
[2018-10-07] MEDS: KLOR-CON PO SCH ×2 (10:11→20:13)
[2018-10-07] MEDS: MIRALAX PO SCH (10:11)
[2018-10-07] MEDS: MYCOSTATIN SUSP PO SCH ×4 (10:11→20:30)
[2018-10-07] MEDS: NORCO-7.5 PO PRN ×2 (11:05→20:29)
--- NOTE | 2018-10-07 11:43 | PROGRESS NOTE ---
DATE: 10/07/2018 SUBJECTIVELY: Ms. Recinos is doing better. She does have chronic cough with scanty sputum production, mild shortness of breath. No high-grade fever or chills. No typical chest pain. Blood gas done yesterday reviewed. OBJECTIVE: Vital signs: Blood pressure 142/72, pulse 78, respiration 19, temperature 98.6 degrees. Neck: Supple. No JVD. Lungs: Bibasilar crepitations, occasional wheezing. CVS: S1 and S2 heard. Abdomen: Soft, globular. Bowel sounds present. Extremities: No cyanosis, clubbing. No acute DVT. DIRECTOR OF ENVIRONMENTAL SERVICES: Alert, awake, able to move all 4 limbs. PROBLEM LIST: 1. Chronic obstructive pulmonary disease exacerbation. 2. Chronic respiratory failure. 3. Chronic pain. 4. Hypercarbia. 5. Hyperglycemia. PLAN: Overall plan discussed with the patient. We will continue current treatment. Close observation. I am going to repeat blood work tomorrow. If clinical condition permits, we will plan discharging patient to rehab tomorrow. cc: MD Gerardo Loo MD
[2018-10-07] MEDS: PREDNISONE PO SCH (13:25)
--- NOTE | 2018-10-07 16:42 | PULMONOLOGY PROGRESS NOTE ---
DATE: 10/07/2018 SUBJECTIVE: The patient reports she did not sleep well last evening and was sleepy this morning. She feels better now. She reports her breathing is at baseline or slightly better. OBJECTIVE: Vital Signs: The patient has been afebrile for the last 24 hours. Blood pressure 120/58, heart rate 77, respiratory rate 18, oxygen saturation 99% on 3 L per nasal cannula. HEENT: Pupils are equal and reactive. Oropharynx appears clear. Neck: Supple. Chest: Reveals prolonged expiratory phase with faint wheeze. Cardiac exam: S1, S2. Abdomen: Obese and soft. Extremities: Without edema. IMPRESSION: This is a 73-year-old with: 1. Severe chronic obstructive pulmonary disease with an exacerbation. 2. Acute hypercapnic respiratory failure. 3. Acute hypoxemic respiratory failure. 4. Truncal obesity. RECOMMENDATIONS: 1. Continue BiPAP at bedtime and p.r.n. 2. Encourage weight loss. 3. Encourage smoking cessation. 4. Continue steroids and bronchodilators. 5. Anticipate discharge to rehabilitation tomorrow if she has continued stability/clinical improvement. cc: MD Gerardo Tadeo MD
[2018-10-07] MEDS: ROCEPHIN 1 GM in NS 50 ML IV SCH (20:12)
[2018-10-07] MEDS: DESYREL PO SCH (20:12)
[2018-10-07] MEDS: AMBIEN PO PRN ×2 (22:58)
[2018-10-08] MEDS: DUONEB (A & A) INH SCH ×4 (03:12→22:02)
[2018-10-08] MEDS: LOVENOX SUBQ SCH (06:31)
[2018-10-08] MEDS: LINZESS PO SCH (06:31)
[2018-10-08 06:41] LABS: MODALITY CANNULA
[2018-10-08] MEDS: PREDNISONE PO SCH (09:20)
[2018-10-08] MEDS: NICODERM PATCH TD SCH (09:20)
[2018-10-08] MEDS: KLOR-CON PO SCH ×2 (09:20→21:07)
[2018-10-08] MEDS: MYCOSTATIN SUSP PO SCH ×4 (09:20→21:07)
[2018-10-08] MEDS: NEURONTIN PO SCH ×3 (09:20→21:06)
[2018-10-08 09:22] LABS: ALLEN TEST YES; BLOOD TYPE ARTERIAL; HCO3-(ACT) 31.1 mmoll (20.0-26.0); METHB 0.9 % (0.0-1.5); O2(CT) 15.6 mL/dL (15.0-23.0); O2HB 92.5 % (95.0-99.0); PO2(98.6) 64 mmHg (60-100); SAMPLE BLOOD; SAO2 95.8 % (95.0-100.0); pH(98.6) 7.27 (7.35-7.45)
[2018-10-08 09:25] LABS: MODALITY CANNULA; PCO2(98.6) 82 mmHg (35-45)
--- NOTE | 2018-10-08 09:26 | PROGRESS NOTE ---
DATE: 10/08/2018 Ms. Recinos is about the same. General condition, she is so drowsy. This morning she is very drowsy, and cannot be aroused well. She has not taken her breakfast. Her lungs reveal some wheezing. Last ABGs done on the revealed pCO2 of 70. I am going to repeat another blood gas today, and then decide probably tomorrow about transferring her to the shelter. -7 cc: Gerardo Helton MD
[2018-10-08] MEDS: MIRALAX PO SCH (14:47)
[2018-10-08] MEDS: NORCO-7.5 PO PRN ×2 (15:16→21:07)
[2018-10-08] MEDS: VANCOMYCIN 1,500 MG in NS 250 ML IV SCH (17:18)
--- NOTE | 2018-10-08 20:38 | PULMONOLOGY PROGRESS NOTE ---
DATE: 10/08/2018 SUBJECTIVE: The patient is asking why she is still here and why she was not discharged. The patient was hypersomnolent this morning and does not remember Dr. Helton coming to visit. She is now awake, alert, and conversant. The patient did receive trazodone and Ambien last evening. OBJECTIVE: The patient is awake, alert, and conversant. She is without specific complaints. She has been afebrile for the last 24 hours. Blood pressure 136/59, heart rate 87, respiratory rate 18, oxygen saturation 94% on 3 L per nasal cannula.HEENT: Pupils are equal and reactive. Oropharynx is clear. Neck: Is supple. Chest: Reveals prolonged expiratory phase without definite wheezing. Cardiac exam: S1, S2. Abdomen: Obese and soft. Extremities: Without edema. LABORATORIES: Arterial blood gas 9 o'clock this morning pH 7.27, pCO2 of 82, PO2 of 64. IMPRESSION: 1. A 73-year-old with severe chronic obstructive pulmonary disease and chronic obstructive pulmonary disease exacerbation. 2. Acute hypercapnic respiratory failure. 3. Acute hypoxemic respiratory failure. 4. Truncal obesity. 5. Hypersomnolence. DISCUSSION: A 73-year-old with acute on chronic respiratory failure as per above. I suspect that the patient will be sensitive to Ambien and to the affects of trazodone. I would prefer not to use Ambien at all, but this may cause some insomnia during the hospitalization and while on steroids. I will decrease her Ambien from the 10 mg dose to the 5 mg dose and I will decrease her trazodone from 50 mg at bedtime to 25 mg at bedtime. Followup blood gas will be tomorrow morning. cc: MD Gerardo Tadeo MD
[2018-10-08] MEDS: AMBIEN PO PRN (21:06)
[2018-10-08] MEDS: DESYREL PO SCH (21:06)
[2018-10-08] MEDS: ROCEPHIN 1 GM in NS 50 ML IV SCH (21:07)
[2018-10-09] MEDS: DUONEB (A & A) INH SCH ×4 (03:46→21:38)
[2018-10-09] MEDS: LINZESS PO SCH (06:18)
[2018-10-09] MEDS: LOVENOX SUBQ SCH (06:18)
[2018-10-09] MEDS: NORCO-7.5 PO PRN ×3 (06:18→17:59)
[2018-10-09] MEDS: PREDNISONE PO SCH (08:16)
[2018-10-09] MEDS: KLOR-CON PO SCH ×2 (08:16→20:32)
[2018-10-09] MEDS: MIRALAX PO SCH (08:16)
[2018-10-09] MEDS: NEURONTIN PO SCH ×3 (08:16→20:33)
[2018-10-09] MEDS: NICODERM PATCH TD SCH (08:16)
[2018-10-09 08:34] LABS: ALLEN TEST YES; BE 6.3 mmoll (-3.0-3.0); BLOOD TYPE ARTERIAL; HCO3-(ACT) 29.8 mmoll (20.0-26.0); METHB 1.3 % (0.0-1.5); O2(CT) 19.2 mL/dL (15.0-23.0); O2HB 96.1 % (95.0-99.0); PO2(98.6) 109 mmHg (60-100); SAMPLE BLOOD; SAO2 99.5 % (95.0-100.0); THB 14.1 g/dL (11.5-17.4); pH(98.6) 7.31 (7.35-7.45)
[2018-10-09 08:36] LABS: MODALITY BI PAP
[2018-10-09 08:39] LABS: PCO2(98.6) 70 mmHg (35-45)
[2018-10-09] MEDS: MYCOSTATIN SUSP PO SCH ×4 (08:40→20:35)
--- NOTE | 2018-10-09 08:46 | PROGRESS NOTE ---
DATE: 10/09/2018 Ms. Recinos is more alert today. She kept the BiPAP for a long time yesterday. Last night she kept it for 6 hours. We are repeating the blood gases. She does have some oral candidiasis and has been on nystatin. She is requesting a regular diet, which we will put her on and, if she continues to improve, we might certainly think about sending her to rehab tomorrow. cc: Gerardo Helton MD
[2018-10-09] MEDS: VANCOMYCIN 1,500 MG in NS 250 ML IV SCH (12:07)
[2018-10-09] MEDS: ROCEPHIN 1 GM in NS 50 ML IV SCH (20:32)
[2018-10-09] MEDS: AMBIEN PO PRN (20:32)
[2018-10-09] MEDS: DESYREL PO SCH (20:33)
--- NOTE | 2018-10-09 22:11 | PROGRESS NOTE ---
DATE: 10/09/2018 SUBJECTIVE: The patient is awake, alert, and conversant. She reports she feels better. She reports she is committed to smoking cessation. She reports she is also committed to weight loss and asked several dietary questions about successful weight loss. She reports she has done well today. OBJECTIVE: Vital Signs: The patient has been afebrile for the last 24 hours. Blood pressure 110/54, heart rate 73, respiratory rate 20, oxygen saturation 98% on 2 L per nasal cannula. HEENT: Pupils are equal and reactive. Oropharynx is clear. Neck: Supple. Chest: Reveals diminished breath sounds bilaterally without wheezing or rhonchi. Cardiac: S1, S2. Abdomen: Soft and obese. Extremities: Without edema. LABORATORIES: Arterial blood gas reveals a pH 7.31, pCO2 of 70, PO2 of 109. CO2 has decreased from 82 yesterday morning to 70 today. IMPRESSION: A 73-year-old with 1. Severe chronic obstructive pulmonary disease. 2. Chronic obstructive pulmonary disease exacerbation, which continues to improve. 3. Acute hypercapnic respiratory failure, which has improved. 4. Acute hypoxemic respiratory failure. 5. Truncal obesity. 6. Tobacco use on the day of admission. RECOMMENDATIONS: 1. Cautious use of any benzodiazepines or sleep aids in the evening. 2. Counseled about the importance of continued smoking cessation. 3. Counseled about the importance of weight loss. 4. Anticipate discharge tomorrow if she continues to remain stable. cc: MD Gerardo Tadeo MD
[2018-10-10] MEDS: NORCO-7.5 PO PRN ×2 (01:18→06:36)
[2018-10-10] MEDS: DUONEB (A & A) INH SCH ×2 (03:17→09:57)
[2018-10-10] MEDS: LOVENOX SUBQ SCH (06:36)
[2018-10-10] MEDS: LINZESS PO SCH (06:36)
[2018-10-10] MEDS: VANCOMYCIN 1,500 MG in NS 250 ML IV SCH (06:36)
--- NOTE | 2018-10-10 09:24 | PROGRESS NOTE ---
DATE: 10/10/2018 SUBJECTIVE: Ms Recinos is doing better. She is alert. Last blood gases revealed pCO2 down to 70. She is oriented. She uses BiPAP p.r.n. I think she can be discharged today to go to rehab. She is going to [facility] beds. cc: Gerardo Helton MD
--- NOTE | 2018-10-10 09:55 | DISCHARGE SUMMARY ---
ADMISSION DATE: 09/26/2018 DISCHARGE DATE: 10/10/2018 HOSPITAL COURSE: Ms. Recinos who is a 73-year-old white female known case of COPD was admitted with severe shortness of breath with acute exacerbation, acute on chronic respiratory failure. Laboratory data in the hospital: Chest x-ray revealed some atelectasis in the right lung actually pneumonia has resolved. She has changes of COPD. She had blood gases on multiple times and she had CO2 retention off and on when her CP, pCO2 had gone up to 90 when she was off the BiPAP and was drowsy because of the retention is a high. CBC revealed white count of 12.28, hemoglobin 13.5. Electrolytes stable. The last potassium was 4.2, blood sugar has been around 214. She has been refusing the diabetic diet. She has been on steroid often and on. That could be partly responsible for hyperglycemia. She was seen in consultation with Dr. Guy, who agreed with the management. She was on IV vancomycin, which she also refused. She says she is allergic to mycins and she refused. She had some thrush in the mouth. It was treated with nystatin. I told her that this was the cause of antibiotics and steroid. However, she kept on saying that the thrush is because of her allergy to mycins. Anyway the thrush has cleared up. She is going to be discharged today. We will send her to [facility] in [place] upon her request and her she will be followed by me later. FINAL DIAGNOSES: 1. Acute exacerbation of chronic obstructive pulmonary disease. 2. Acute respiratory failure. 3. Maturity onset diabetes. 4. Oral candidiasis. cc: Gerardo Helton MD
[2018-10-10] MEDS: KLOR-CON PO SCH (10:01)
[2018-10-10] MEDS: NEURONTIN PO SCH (10:01)
[2018-10-10] MEDS: PREDNISONE PO SCH (10:01)
[2018-10-10] MEDS: NICODERM PATCH TD SCH (10:01)
[2018-10-10] MEDS: MIRALAX PO SCH (10:02)
[2018-10-10] MEDS: MYCOSTATIN SUSP PO SCH (10:02)
[2018-10-10 11:52] VITALS: BP 111/59
== END 2018-10-10 14:46 | DRG 190 ==
LOC: DIRADM 16:12 → 3N 17:23
PROVIDERS: ADMIT Internal Medicine; ATTEND Internal Medicine
CPT/HCPCS: 71010; 71020; 71045; 71046; 80048; 80053; 80202; 81001; 81015; 82805; 82948; 83735; 84100; 85025; 85027; 87040; 93005; 93010; 94640; 94660; 94761; 97110; 97162; 97530; A9270; J0696; J1120; J1650; J2920; J2930; J3370; J7050; J7506; J7512; XXXXX

== ENCOUNTER 2019-01-31 17:18 | Inpatient (IN) ==
[2019-01-31] MEDS ORDERED: VANCOMYCIN 1 GM/NS 1 GM/250 ML IVPB IV ONE (17:34)
[2019-01-31] MEDS ORDERED: NS 1,000 ML IV ONE (17:34)
[2019-01-31] MEDS ORDERED: ZOSYN 4.5 GM in NS 100 ML IV ONE (17:34)
[2019-01-31] MEDS ORDERED: SOLU-CORTEF IV ONE (17:34)
[2019-01-31] MEDS ORDERED: DUONEB (A & A) INH ONE (17:34)
[2019-01-31] MEDS ORDERED: SOLU-MEDROL IV ONE (17:34)
--- NOTE | 2019-01-31 17:57 | Diag Imaging Result Doc PS360 ---
EXAM: CHEST-PORTABLE - 01/31/2019 HISTORY: dyspnea TECHNIQUE: Portable chest COMPARISON: 10/04/2018 FINDINGS: Heart size is normal. There are COPD/emphysematous changes similar to prior. Lungs appear to be clear of acute changes. There is no pleural effusion or pneumothorax identified. IMPRESSION: COPD/emphysematous changes. No acute changes. Electronically signed by Tan Rascon 01/31/2019 5:55 PM
[2019-01-31 18:08] LABS: BLOOD TYPE ARTERIAL; SAMPLE BLOOD
[2019-01-31 18:09] LABS: ALLEN TEST YES; HCO3-(ACT) 31.9 mmoll (20.0-26.0); METHB 1.1 % (0.0-1.5); MODALITY CANNULA; O2(CT) 17.9 mL/dL (15.0-23.0); PCO2(98.6) 58 mmHg (35-45); PO2(98.6) 72 mmHg (60-100); SAO2 97.7 % (95.0-100.0); THB 13.5 g/dL (11.5-17.4)
--- NOTE | 2019-01-31 18:14 | EKG Report ---
Test Performed on : 01/31/2019 5:31:06 PM Test Reason : dyspnea Blood Pressure : / mmHG Vent. Rate : 073 BPM Atrial Rate : 073 BPM P-R Int : 142 ms QRS Dur : 088 ms QT Int : 364 ms P-R-T Axes : 064 060 077 degrees QTc Int : 401 ms Normal sinus rhythm. Normal ECG When compared with ECG of 26-SEP-2018 18:11, T wave inversion now evident in Anterior leads QT has shortened Unconfirmed Result
[2019-01-31 18:15] LABS: BASO# 0.03 X1000 (0.0-0.2); BASO% 0.4 % (0.0-0.8); EOS# 0.19 X1000 (0.0-0.7); EOS% 2.2 % (0.0-10.0); HEMATOCRIT 43.7 % (37.0-47.0); HEMOGLOBIN 13.8 g/dL (12.0-16.0); IMM GRAN# 0.03 X1000 (0.0-0.04); IMM GRAN% 0.4 % (0.0-0.5); LYMPH% 17.5 % (20.5-51.1); MCH 28.2 PG (27-31); MCHC 31.6 g/dL (33-37); MCV 89.2 FL (81-99); MONO# 0.57 X1000 (0.11-0.59); MONO% 6.7 % (1.7-9.3); NEUT# 6.24 X1000 (1.4-6.5); NEUT% 72.8 % (42.2-75.2); PLT 175 X1000 (130-400); RDW 13.7 % (11.5-14.5); WBC 8.56 X1000 (4.8-10.8)
[2019-01-31 18:21] LABS: INR 0.84; PROTIME 12.2 Seconds (11.0-16.0)
[2019-01-31 18:22] LABS: PTT 26.8 Seconds (22.3-41.8)
[2019-01-31 18:23] LABS: URINE SOURCE CATH
[2019-01-31 18:30] LABS: BILIRUBIN URINE NEGATIVE (NEGATIVE); BLOOD URINE NEGATIVE (NEGATIVE); COLOR YELLOW; GLUCOSE URINE NEGATIVE (NEGATIVE); KETONE URINE NEGATIVE (NEGATIVE); LEUKOCYTES URINE NEGATIVE (NEGATIVE); NITRITE URINE NEGATIVE (NEGATIVE); PH URINE 5.5; PROTEIN URINE NEGATIVE (NEGATIVE); SP GRAVITY URINE 1.018; TURBIDITY URINE CLEAR (CLEAR); UROBILINOGEN URINE NORMAL (NORMAL)
[2019-01-31 18:35] LABS: UR EPITHELIAL CELLS <10 /HPF (<10); URINE BACTERIA NEGATIVE /HPF; URINE RBC <10 /HPF (<10); URINE WBC <10 /HPF (<10)
[2019-01-31 18:37] LABS: URINE YEAST NONE SEEN
[2019-01-31] MEDS ORDERED: TYLENOL PO PRN (18:39)
[2019-01-31] MEDS ORDERED: MORPHINE IV PRN (18:39)
--- NOTE | 2019-01-31 18:39 | PROVIDER DOCUMENTATION ---
This chart was entered by Manisha Shannon Scribe, acting as scribe for Emeka Scott MD. HPI-Respiratory General - General Chief Complaint: Shortness of Breath Stated Complaint: DR HELTON REFERRED PT Time Seen by Provider: 01/31/19 17:26 Source: patient Allergies/Adverse Reactions: Patient Allergies Allergy/AdvReac Type Severity Reaction Status Date / Time colistimethate sodium Allergy Unknown Verified 01/31/19 18:08 [From Colcindy-Mycin ] ibuprofen Allergy Unknown Verified 01/31/19 18:08 levofloxacin Allergy RASH Verified 01/31/19 18:08 Home Medications: Home Medication List Medication Instructions Recorded Confirmed Last Taken Type Famotidine [Pepcid] 40 mg PO DAILY 08/11/16 09/26/18 09/26/18 History Potassium Chloride E.r. [Klor-Con] 10 meq PO HS tablet 09/29/17 09/26/18 1 Day Ago Rx ~09/25/18 Fluticasone/Vilant 100/25 INH 1 puff INH RTDAILY inhaler 05/03/18 09/26/18 09/26/18 Rx [Breo Ellipta 100/25 Mcg INH] Furosemide [Lasix] 40 mg PO QAM tablet 05/03/18 09/26/18 09/26/18 Rx Tiotropium [place] Inhaler 1 puff INH RTDAILY inhaler 05/03/18 09/26/18 09/26/18 Rx [Spiriva] Escitalopram Oxalate [Lexapro] 10 mg PO DAILY 06/11/18 09/26/18 1 Day Ago History ~09/25/18 Trazodone [Desyrel] 50 mg PO HS tablet 06/20/18 09/26/18 1 Day Ago Rx ~09/25/18 Albuterol 2.5MG/Ipratrop 0.5MG 3 ml INH RTQ6H neb 10/10/18 Unknown Rx [Duoneb (A & A)] Gabapentin [Neurontin] 300 mg PO 0900,1500,2100 cap 10/10/18 Unknown Rx Hydrocodone/APAP 7.5 mg/325 mg 1 ea PO 4XDAY PRN PRN tab 10/10/18 Unknown Rx [[place]-7.5] Linaclotide [Linzess] 145 mcg PO DAILY@0700 cap 10/10/18 Unknown Rx Nicotine Patch [Nicoderm Patch] 21 mg TD DAILY patch.td24 10/10/18 Unknown Rx Ondansetron [Zofran] 4 mg PO Q6H PRN PRN tab 10/10/18 Unknown Rx Prednisone 15 mg PO DAILY tab 10/10/18 Unknown Rx Zolpidem [Ambien] 5 mg PO HS PRN PRN tab 10/10/18 Unknown Rx - History of Present Illness-Resp Nature of Presenting Problem: 73 y/o female presents to ED with worsening SOB onset 1 week ago. Pt reports she was just discharged from [facility] 2 days ago. Pt states she gets short of breath just from walking. Pt reports hx COPD. Pt states her PCP told her to come to ED. Pt is alert and oriented x 2. Quality of Pain: reports: none Severity in ED: reports: moderate Onset/Duration: reports: 1 week ago Timing: reports: still present, getting worse Context: reports: other (hx COPD) Exposure: reports: other (hx COPD) Cough Quality/Degree: reports: no cough Episode Frequency: chronic episodes (hx COPD) Current Respiratory Medication Therapy: Initiated see nurses note Modifying Factors: improves with: rest. worse with: exertion Associated Symptoms: reports: shortness of breath, short of breath Similar Symptoms Previously?: Yes (hx COPD) Recently seen or treated by another doctor?: Yes Review of Systems - Adult - REVIEW OF SYSTEMS - ADULT Constitutional: denies: chills, fever Eyes: reports: no symptoms reported Ears, Nose, Mouth & Throat: reports: no symptoms reported Cardiovascular: denies: chest pain, palpitations Respiratory: reports: shortness of breath. denies: cough Gastrointestinal: denies: abdominal pain, diarrhea, nausea, vomiting Genitourinary: reports: no symptoms reported Musculoskeletal: denies: back pain, joint pain Integumentary: reports: no symptoms reported Neurological: denies: dizziness/vertigo, seizure Psychiatric: reports: no symptoms reported Endocrine: reports: no symptoms reported Hematologic/Lymphatic: reports: no symptoms reported Allergic/Immunologic: reports: no symptoms reported All Other Systems: Reviewed and Negative Past History - Adult - PAST MEDICAL HISTORY-ADULT Review of Records: reports: Old Records Reviewed, Nursing Assessment Review, Medications Reviewed Major Childhood Illnesses: reports: denies history Cardiovascular: reports: denies history Respiratory: reports: asthma, COPD Gastrointestinal: reports: denies history Obstetrical/Gynecological: reports: denies history Genitourinary: reports: kidney disease Musculoskeletal: reports: denies history Neurological: reports: Seizures/Epilepsy Psychiatric: reports: denies history Endocrine/Immune: reports: denies history Other Conditions: reports: denies history - PRIOR SURGERIES/PROCEDURES Surgical/Procedure History: reports: cholecystectomy, orthopedic (extremity) (L knee), other (toe sx) - IMMUNIZATION STATUS Childhood Immunizations: See Nurse Assessment Flu Vaccine: See Nurse Assessment - FAMILY HISTORY Family History: reviewed, not pertinent - SOCIAL HISTORY Smoking: greater than 1 pack/day Provider spent 3-5 mins advising pt. on dangers of tobacco.: Discussed manners to quit use, and f/u contacts for add'l counseling. Substance Use: none/never Alcohol Use Frequency: never Living Situation: family Physical Exam-General - PHYSICAL EXAM-ADULT Initial Vital Signs Reviewed: Yes - CONSTITUTIONAL General Appearance: appears well, alert, mild distress - EYES Eyes: PERRL/EOMI, pink conjunctivae - HEAD, EARS, NOSE, MOUTH & THROAT HENMT: normocephalic/atraumatic, moist mucous membranes, normal ENT inspection - NECK Neck: non-tender, full range of motion - RESPIRATORY Respiratory: chest non-tender, decreased breath sounds, rhonchi (scattered), increased rate, other (dull breath sounds). negative: normal breath sounds - CARDIOVASCULAR Cardiovascular: tachycardia - GASTROINTESTINAL (ABDOMEN) Abdominal Exam: normal bowel sounds, non tender, soft - MUSCULOSKELETAL Back Exam: normal inspection, no CVA tenderness, no vertebral tenderness Extremity: normal range of motion, non-tender - SKIN Integumentary: normal color, warm/dry - NEUROLOGIC Neurologic: grossly normal - PSYCHIATRIC Psych/Mental Status: normal mood/affect, normal thought content, normal thought process, other (oriented x 2). negative: oriented x 3 - HEART Score HEART Score: History: Slightly Suspicious HEART Score: ECG: Normal HEART Score: Age: > or = 65 Years HEART Score: Risk Factors for Atherosclerotic Disease: No Risk Factors Known Progress - PLAN OF CARE/RESULTS Progress/Plan/Lab Results: Vital Signs - 8 hr 01/31/19 17:22 01/31/19 17:25 01/31/19 18:10 Temperature 98.2 F 98.6 F Pulse Rate 75 73 75 Respiratory Rate 30 H 20 18 Blood Pressure 141/66 143/94 O2 Sat by Pulse Oximetry 91 L 97 96 01/31/19 18:19 Temperature Pulse Rate 77 Respiratory Rate 22 Blood Pressure 159/81 O2 Sat by Pulse Oximetry 96 Laboratory Results - last 24 hr 01/31/19 01/31/19 01/31/19 17:45 17:45 17:45 WBC 8.56 RBC 4.90 Hgb 13.8 Hct 43.7 MCV 89.2 MCH 28.2 MCHC 31.6 L RDW Std Deviation 13.7 Plt Count 175 MPV 10.0 Immature Gran % (Auto) 0.4 Neut % (Auto) 72.8 Lymph % (Auto) 17.5 L [place] % (Auto) 6.7 Eos % (Auto) 2.2 Baso % (Auto) 0.4 Immature Gran # (Auto) 0.03 Neut # (Auto) 6.24 Lymph # (Auto) 1.50 [place] # (Auto) 0.57 Eos # (Auto) 0.19 Baso # (Auto) 0.03 PT 12.2 INR 0.84 PTT (Actin FS) 26.8 Specimen Type Sample Site pH pCO2 pO2 HCO3 Base Excess Oxyhemoglobin ABG O2 Sat (Calculated) ABG O2 Saturation ABG Carboxyhemoglobin ABG Methemoglobin Graeme Test A-a O2 Difference Total Hemoglobin Lactate Liter Flow Blood Gas Modality FiO2 % Plasma Lactate 1.8 Urine Source Urine Color Urine Turbidity Urine pH Ur Specific [place] Urine Protein Ur Glucose (Stick) Ur Ketones (Stick) Urine Blood Urine Nitrite Urine Bilirubin Urobilinogen Dipstick Urine Leukocytes Urine WBC (Auto) Urine RBC (Auto) U Epithel Cells (Auto) Urine Bacteria (Auto) 01/31/19 01/31/19 17:59 18:17 WBC RBC Hgb Hct MCV MCH MCHC RDW Std Deviation Plt Count MPV Immature Gran % (Auto) Neut % (Auto) Lymph % (Auto) [place] % (Auto) Eos % (Auto) Baso % (Auto) Immature Gran # (Auto) Neut # (Auto) Lymph # (Auto) [place] # (Auto) Eos # (Auto) Baso # (Auto) PT INR PTT (Actin FS) Specimen Type ARTERIAL Sample Site L RADIAL pH 7.40 pCO2 58 H* pO2 72 HCO3 31.9 H Base Excess 9.0 H Oxyhemoglobin 94.0 L ABG O2 Sat (Calculated) 17.9 ABG O2 Saturation 97.7 ABG Carboxyhemoglobin 2.70 H ABG Methemoglobin 1.1 Graeme Test YES A-a O2 Difference 55.0 Total Hemoglobin 13.5 Lactate 1.90 Liter Flow 2.0 Blood Gas Modality CANNULA FiO2 % 28.0 Plasma Lactate Urine Source CATH Urine Color YELLOW Urine Turbidity CLEAR Urine pH 5.5 Ur Specific [place] 1.018 Urine Protein NEGATIVE Ur Glucose (Stick) NEGATIVE Ur Ketones (Stick) NEGATIVE Urine Blood NEGATIVE Urine Nitrite NEGATIVE Urine Bilirubin NEGATIVE Urobilinogen Dipstick NORMAL Urine Leukocytes NEGATIVE Urine WBC (Auto) <10 Urine RBC (Auto) <10 U Epithel Cells (Auto) <10 Urine Bacteria (Auto) NEGATIVE Orders Category Date Time Status Nursing- Obtain EKG once Care 01/31/19 17:32 Completed Saline Loc NOW Care 01/31/19 17:32 Active CHEST-PORTABLE [RAD] Stat Exams 01/31/19 17:33 Completed ABG [RESP] Routine Lab 01/31/19 17:59 Completed BLOOD CULTURE [BLDCUL] Stat Lab 01/31/19 18:00 Received C REACTIVE PROT QUANT [CHEM] Stat Lab 01/31/19 17:45 Received CBC WITH ELECTRONIC DIFF [HEME] Stat Lab 01/31/19 17:45 Completed CK PROFILE [SP CHEM] Stat Lab 01/31/19 17:45 Received COMPREHENSIVE METABOLIC PANEL [CHEM] Stat Lab 01/31/19 17:45 Received LACTATE, PLASMA [CHEM] Stat Lab 01/31/19 17:45 Completed MAGNESIUM [CHEM] Stat Lab 01/31/19 17:45 Received PRO B-NATRIURETIC PEPTIDE Stat Lab 01/31/19 17:45 Received PROTIME WITH INR [COAG] Stat Lab 01/31/19 17:45 Completed PTT [COAG] Stat Lab 01/31/19 17:45 Completed SPUTUM CULTURE WITH GRAM STAIN [RM] Stat Lab 01/31/19 17:33 Uncollected TROPONIN T Stat Lab 01/31/19 17:45 Received URINALYSIS W/POSS RFLX CULT [URINALYSIS] Stat Lab 01/31/19 18:17 Results URINE MANUAL MICROSCOPIC [URINALYSIS] Stat Lab 01/31/19 18:17 Results 0.9% Sodium Chloride Inj [Ns] 1,000 ml Med 01/31/19 17:34 Discontinued IV 999 mls/hr Albuterol 2.5MG/Ipratrop 0.5MG [Duoneb (A & A)] Med 01/31/19 17:34 Discontinued 9 ml INH NOW ONE Hydrocortisone Sod Succinate [Solu-Cortef] Med 01/31/19 17:34 Discontinued 100 mg IV NOW ONE Methylprednisolone Sod Succ [Solu-Medrol] Med 01/31/19 17:34 Discontinued 125 mg IV NOW ONE Piperacillin/Tazobactam [Zosyn] 4.5 gm Med 01/31/19 17:34 Discontinued 0.9% Sodium Chloride Inj [Ns] 100 ml IV NOW Vancomycin 1 gm/Ns Med 01/31/19 17:34 Discontinued 1 gm in 250 ml IV NOW Aerosol Treatments Routine Oth 01/31/19 17:34 Completed Aerosol Treatments Stat Oth 01/31/19 17:34 Completed EKG [EKG] Stat Ther 01/31/19 17:32 Draft Result Diagrams: 01/31/19 17:45 - REASSESSMENT Reassessment #1 Time Reassessed: 18:37 Status: improving (Given 3 duonebs, IV hydrocorotisone, IV solumedrol, IV Vanc/zosyn) - EKG 1 Time of EKG reading by physician:: 17:35 EKG Read and Signed by:: Emeka Scott EKG Interpretation (*Must complete 3 of following elements*): Normal Rate: 73 Rhythm: NSR [place]: normal QRS: normal DE Interval: normal ST Wave: normal - XRAY 1 XRAY Study: Chest Impression: See EMR Report ([facility] - [address] [place] [address] [address] [address] [facility] - [address] [place] [address] Department of Imaging Patient: JAIR VALENCIA [facility] Date: 01/31/19MR#: [id number] : 1945DM Status: PRE ERAcct#: [id number] Age/Sex: 73/FRoom/Bed: Loc: ED Ordering Physician: Emeka Scott MD Family Physician: Gerardo Helton MD Reason for Procedure: dyspnea Signed EXAM: CHEST-PORTABLE - 01/31/2019 HISTORY: dyspnea TECHNIQUE: Portable chest COMPARISON: 10/04/2018 FINDINGS: Heart size is normal. There are COPD/emphysematous changes similar to prior. Lungs appear to be clear of acute changes. There is no pleural effusion or pneumothorax identified. IMPRESSION: COPD/emphysematous changes. No acute changes. Electronically signed by Tan Rascon 01/31/2019 5:55 PM 01/31/191754 Interpreting Physician: Tan Rascon MD Dictated Date/Time: 01/31/191753 cc: Emeka Scott MD; Gerardo Helton MD) - CONSULTS/PCP/HOSPITALIST Notification #1 *Consult/PCP/Hospitalist*: Carr Time Discussed: 18:38 Consult Disposition: Admit Departure - Departure Date of Disposition Decision: 01/31/19 Time of Disposition Decision: 18:38 DIAGNOSIS: COPD exacerbation Acute and chronic respiratory failure ([id number]) Qualifiers: Respiratory failure complication: hypercapnia Qualified Code(s): J96.22 - Acute and chronic respiratory failure with hypercapnia Disposition: ADMITTED INPATIENT 09 Certified Medical Emergency: Emergent Condition: Fair Referrals and Follow-Ups: Gerardo Helton MD [Primary Care Provider] - Discharge Education: Steps to Quit Smoking, [id number] - Critical Care Note This patient required my direct & personal management of CC.: No Attestation - Physician/ LIYAH Attestation Patient care was provided by Advanced Practice Provider:: No The physician spent face to face time with patient:: Yes Advanced Practice Provider documentation review:: Supervising physician onsite and consulted in the evaluation and care of this patient. The physician did have a face to face encounter with the patient. This chart was documented by the indicated scribe, (Manisha Shannon Scriblety) and accurately reflects the services I performed and decisions made by pr, Emeka Scott MD, as attested by the provider's signature.
[2019-01-31 18:44] LABS: AGAP 10; ALB/GLOB RATIO 1.7; ALKALINE PHOSPHATASE 69 U/L (32-104); BUN 10 mg/dL (8-22); C REACTIVE PROT QUANT 5.94 mg/L (0.00-5.00); CALCIUM 9.1 mg/dL (8.8-10.2); CHLORIDE 99 mmol/L (98-107); CK PROFILE 45 U/L (24-173); COSMO 287; CREATININE 0.8 mg/dL (0.5-0.9); ESTIMATED GFR > 60; GLUCOSE 117 mg/dL (70-104); GOT 15 U/L (10-30); GPT 14 U/L (10-36); MAGNESIUM 1.6 mg/dL (1.5-2.7); POTASSIUM 3.8 mmol/L (3.5-5.1); SODIUM 144 mmol/L (136-145); TCO2 35 mmol/L (25-35); TOTAL BILIRUBIN 0.22 mg/dL (0.20-1.00); TOTAL PROTEIN 6.3 g/dL (6.3-8.3)
[2019-01-31] MEDS: DUONEB (A & A) INH SCH ×3 (19:22→22:35)
[2019-01-31] MEDS: ZOFRAN PO PRN (19:29)
--- NOTE | 2019-01-31 19:53 | HISTORY AND PHYSICAL ---
CHIEF COMPLAINT: Shortness of breath, cough, and wheezing. HISTORY OF PRESENT ILLNESS: She is a 73-year-old Pickwickian syndrome, COPD dependent on oxygen, steroids, who quit smoking a month ago was recently admitted at [facility] and discharge. She came here with above symptoms. The patient was given treatments and still in moderate respiratory distress. Admitted to the hospital for acute COPD exacerbation. The patient was admitted here in the past. PAST MEDICAL HISTORY: 1. COPD. 2. Peripheral vascular disease. 3. Pickwickian syndrome. 4. Chronic pain syndrome. 5. Osteoarthritis. 6. Chronic anxiety. PAST SURGICAL HISTORY: Left knee surgery, cholecystectomy. MEDICATIONS: Reported are albuterol, Atrovent nebulizers, Pepcid 40 mg daily, Breo 1 puff daily, Spiriva 1 puff daily, Neurontin 300 t.i.d., hydrocodone 7.5 q.6, Linzess 145 daily, trazodone 550 mg at bedtime, Ambien 5 at bedtime. ALLERGIES: Reported to ibuprofen, Levaquin. SOCIAL HISTORY: Lives in [place]. Single, , 5 children. Smoking: Quit smoking a month ago. No alcohol. FAMILY HISTORY: Both parents of [place]. VACCINATIONS: Flu vaccine was reported up-to-date. Pneumococcal vaccine 23 in 2013. REVIEW OF SYSTEMS: HEENT: No headache. No vision problem. No earache. No sore throat. Neck: No goiter. No lymphadenopathy. No bruit. Cardiopulmonary: No chest pain. Basically cough, shortness of breath, wheezing. GI: No nausea, vomiting, abdominal pain. : No history of hesitancy, frequency, dysuria. No swelling of feet. No joint pains. Neurologic: No focal symptoms or weakness. EXAMINATION: Vital signs: Temperature is 98 degrees, pulse 73, blood pressure is 140/94, 2 L nasal cannula 98%. HEENT: Atraumatic, normocephalic. Pupils equal, reactive to light. TMs are normal. Nose and throat within normal limits. Neck: Supple. No lymphadenopathy. No goiter. Chest: Bilateral air entry. Wheezing. Heart: Sounds are distant. Breast exam: Deferred. Abdomen: Belly is soft, nontender. Good bowel sounds. Extremities: Trace pedal edema. Neurologic: No obvious neurological deficits. INVESTIGATIONS: CBC: White cell count 8.5, hematocrit 43, platelet 175,000. PT/INR is normal. ABG: pH is 7.40, pCO2 58, PO2 72 on 28%. SMA 7 is normal. LFTs were normal. Cardiac enzymes were negative. CRP 5.94. Urinalysis is clear. Blood cultures are pending. Chest x-ray, COPD, nothing acute. EKG normal sinus rhythm, mild ST-elevation in inferior leads. ASSESSMENT AND PLAN: 1. A 73-year-old white female admitted to the hospital again with acute chronic obstructive pulmonary disease exacerbation. Quit smoking. Oxygen bronchodilators IV steroids, IV antibiotics with Zosyn. 2. Deep venous thrombosis and gastrointestinal prophylaxis with Pepcid and Lovenox. 3. Reconcile home medicines. 4. Abnormal EKG. Repeat the cardiac enzymes in the morning. Dr. Helton is going to follow up and initiate vaccination protocol prior to the discharge. cc: Breezy Carr MD
[2019-01-31] MEDS ORDERED: DUONEB (A & A) INH PRN (21:07)
[2019-01-31] MEDS: NEURONTIN PO SCH (22:01)
[2019-01-31] MEDS: PEPCID IV SCH (22:01)
[2019-01-31] MEDS: LOVENOX SUBQ SCH (22:01)
[2019-01-31] MEDS: KLOR-CON PO SCH (22:02)
[2019-01-31] MEDS: NORCO-7.5 PO PRN (22:02)
[2019-01-31] MEDS: DESYREL PO SCH (22:02)
[2019-01-31] MEDS: AMBIEN PO PRN (22:05)
[2019-02-01] MEDS: ZOSYN 3.375 GM in NS 50 ML IV SCH ×4 (01:37→20:13)
[2019-02-01] MEDS: SOLU-MEDROL IV SCH ×3 (02:37→17:35)
[2019-02-01] MEDS: DUONEB (A & A) INH SCH ×6 (03:24→23:40)
[2019-02-01] MEDS: LINZESS PO SCH (06:30)
--- NOTE | 2019-02-01 07:07 | EKG Report ---
Test Performed on : 02/01/2019 06:46:53 AM Test Reason : cp Blood Pressure : / mmHG Vent. Rate : 080 BPM Atrial Rate : 080 BPM P-R Int : 148 ms QRS Dur : 098 ms QT Int : 386 ms P-R-T Axes : 079 074 052 degrees QTc Int : 445 ms Sinus rhythm. with premature atrial complexes. Nonspecific T wave abnormality Otherwise normal ECG When compared with ECG of 31-JAN-2019 17:31, (Unconfirmed) premature atrial complexes. are now present Nonspecific T wave abnormality has replaced inverted T waves in Anterior leads Confirmed by Vickey Castillo MD ([id number]) on 02/03/2019 8:25:54 PM
[2019-02-01] MEDS: SPIRIVA INH SCH (08:20)
[2019-02-01] MEDS: LASIX PO SCH (08:24)
[2019-02-01] MEDS: PEPCID IV SCH ×2 (08:24→20:15)
[2019-02-01] MEDS: NEURONTIN PO SCH ×3 (08:24→20:14)
[2019-02-01] MEDS: NORCO-7.5 PO PRN ×2 (08:25→14:22)
[2019-02-01] MEDS: LEXAPRO PO SCH (08:25)
[2019-02-01] MEDS: SODIUM CHLORIDE 0.9% INJ SCH ×2 (08:26→20:15)
[2019-02-01] MEDS: BREO ELLIPTA 100/25 MCG INH INH SCH (09:32)
[2019-02-01] MEDS: MYCOSTATIN SUSP PO SCH ×3 (14:22→20:14)
--- NOTE | 2019-02-01 15:07 | PROGRESS NOTE ---
DATE: 02/01/2019 Ms. Recinos is in room 326A. She is doing better, except that she has some severe stomatitis. She has COPD exacerbation. PCO2 however was only at 53. She is very weak. We are going to continue the current management. Order Nystatin swish and swallow. -7 cc: Gerardo Helton MD
[2019-02-01] MEDS: KLOR-CON PO SCH (20:14)
[2019-02-01] MEDS: DESYREL PO SCH (20:14)
[2019-02-01] MEDS: LOVENOX SUBQ SCH (20:15)
[2019-02-02] MEDS: SOLU-MEDROL IV SCH ×3 (01:35→22:00)
[2019-02-02] MEDS: ZOSYN 3.375 GM in NS 50 ML IV SCH ×4 (01:35→19:40)
[2019-02-02] MEDS: DUONEB (A & A) INH SCH ×6 (03:50→22:52)
[2019-02-02] MEDS: LINZESS PO SCH (06:21)
[2019-02-02] MEDS: BREO ELLIPTA 100/25 MCG INH INH SCH (08:06)
[2019-02-02] MEDS: SPIRIVA INH SCH (08:07)
[2019-02-02] MEDS: NORCO-7.5 PO PRN ×2 (09:31→15:16)
[2019-02-02] MEDS: MYCOSTATIN SUSP PO SCH ×4 (09:33→22:02)
[2019-02-02] MEDS: LEXAPRO PO SCH (09:33)
[2019-02-02] MEDS: NEURONTIN PO SCH ×3 (09:33→22:01)
[2019-02-02] MEDS: LASIX PO SCH (09:33)
[2019-02-02] MEDS: PEPCID IV SCH ×2 (09:34→22:01)
[2019-02-02] MEDS: SODIUM CHLORIDE 0.9% INJ SCH (09:36)
--- NOTE | 2019-02-02 20:54 | PROGRESS NOTE ---
DATE: 02/02/2019 SUBJECTIVE: I am seeing the patient in Dr. Helton's absence this weekend. The patient is overall stable. She says she is breathing some better, but she feels generally weak and very tremulous, likely related to the steroids and nebulizer treatments. OBJECTIVE: Afebrile, T-max 99.5 degrees axillary, pulse 72, respirations 16, blood pressure 156/68, O2 saturation on 3 L 94 to 96 percent. CV RRR without murmur. Lungs, coarse breath sounds. No distinct wheezes. Good air movement. Abdomen very protuberant, soft, nontender, nondistended. Extremities no calf tenderness, cords, or edema. Neuro, moderate tremulousness noted. Cranial nerves are intact. She moves all extremities well. Cardiac enzymes and troponin levels all negative. CMP acceptable. Plasma lactate on admission 1.8. White count 8.5 on admission, hemoglobin 13.8, platelets 175,000. Chest x-ray on admission 2 days ago reveals COPD changes. ASSESSMENT: 1. Chronic obstructive pulmonary disease exacerbation with mild hypercapnia. 2. Pickwickian syndrome. 3. Peripheral vascular disease. 4. Chronic pain syndrome. 5. Osteoarthritis. 6. Chronic anxiety. 7. Thrush. PLAN: We will decrease her IV steroids slightly. Continue DuoNeb q. 4 hours. Continue IV antibiotics of Zosyn. Continue oral nystatin for the thrush. She is on chronic Neurontin and will continue that. No signs of hypercapnic respiratory failure at this time. Will observe. She is on DVT and GI prophylaxis. cc: MD Gerardo Dove MD
[2019-02-02] MEDS: LOVENOX SUBQ SCH (22:00)
[2019-02-02] MEDS: DESYREL PO SCH (22:01)
[2019-02-02] MEDS: KLOR-CON PO SCH (22:01)
[2019-02-02] MEDS: AMBIEN PO PRN (22:41)
[2019-02-02] MEDS: ZOFRAN PO PRN (22:41)
[2019-02-03] MEDS: ZOSYN 3.375 GM in NS 50 ML IV SCH ×4 (02:44→18:46)
[2019-02-03] MEDS: DUONEB (A & A) INH SCH ×6 (03:01→22:54)
[2019-02-03] MEDS: LINZESS PO SCH (06:53)
[2019-02-03] MEDS: BREO ELLIPTA 100/25 MCG INH INH SCH (07:52)
[2019-02-03] MEDS: SPIRIVA INH SCH (07:52)
[2019-02-03] MEDS: SOLU-MEDROL IV SCH ×2 (08:38→20:12)
[2019-02-03] MEDS: PEPCID IV SCH ×2 (08:39→20:12)
[2019-02-03] MEDS: SODIUM CHLORIDE 0.9% INJ SCH (08:39)
[2019-02-03] MEDS: NEURONTIN PO SCH ×3 (11:39→20:12)
[2019-02-03] MEDS: LEXAPRO PO SCH (11:39)
[2019-02-03] MEDS: MYCOSTATIN SUSP PO SCH ×4 (11:39→20:12)
[2019-02-03] MEDS: LASIX PO SCH (11:39)
[2019-02-03] MEDS: NORCO-7.5 PO PRN ×2 (12:14→18:45)
--- NOTE | 2019-02-03 12:39 | PROGRESS NOTE ---
DATE: 02/03/2019 SUBJECTIVE: Patient with some somatization and complains of diffuse aches. OBJECTIVE: Afebrile, pulse 84, respirations 16, blood pressure 135/68, O2 saturation on 2 L 91 to 92 percent. CV RRR. Lungs fairly clear. Barrel chest and distant breath sounds noted. No major wheezes. Abdomen soft, nontender. Active bowel sounds. Extremities, no calf tenderness, cords, or edema. Neuro, she moves all extremities well. No focal deficits. Alert and oriented x3. ASSESSMENT: 1. Chronic obstructive pulmonary disease exacerbation. 2. Pickwickian syndrome. 3. PVD. 4. Chronic pain syndrome. 5. Osteoarthritis. 6. Chronic anxiety, which is prominent. 7. Thrush. PLAN: Continue DuoNebs, IV Zosyn, IV steroids, oral nystatin, her home medicines of Neurontin. Continue GI and DVT prophylaxis. Hopefully home soon if she continues to improve. cc: MD Gerardo Dove MD
[2019-02-03] MEDS: LOVENOX SUBQ SCH (20:12)
[2019-02-03] MEDS: DESYREL PO SCH (20:12)
[2019-02-03] MEDS: KLOR-CON PO SCH (21:17)
[2019-02-04] MEDS: ZOSYN 3.375 GM in NS 50 ML IV SCH ×4 (01:30→20:02)
[2019-02-04] MEDS: DUONEB (A & A) INH SCH ×6 (03:20→23:28)
[2019-02-04] MEDS: LINZESS PO SCH (06:04)
[2019-02-04] MEDS: SPIRIVA INH SCH (07:54)
[2019-02-04] MEDS: BREO ELLIPTA 100/25 MCG INH INH SCH (07:54)
[2019-02-04] MEDS: NEURONTIN PO SCH ×3 (08:14→20:02)
[2019-02-04] MEDS: MYCOSTATIN SUSP PO SCH ×4 (08:14→20:02)
[2019-02-04] MEDS: LEXAPRO PO SCH (08:14)
[2019-02-04] MEDS: SOLU-MEDROL IV SCH ×2 (08:14→20:02)
[2019-02-04] MEDS: LASIX PO SCH (08:14)
[2019-02-04] MEDS: PEPCID IV SCH ×3 (08:14→21:55)
--- NOTE | 2019-02-04 10:03 | PROGRESS NOTE ---
DATE: 02/04/2019 SUBJECTIVE: Ms. Recinos has severe COPD with exacerbation. Her lungs are clear. Heart sounds are normal at present, with occasional wheezing. Abdomen is soft, nontender. She has been treated with respiratory therapy, as well as IV Zosyn and IV Solu-Medrol, nystatin swish and swallow. IMPRESSION: Chronic obstructive pulmonary disease with acute exacerbation, oral thrush, degenerative arthritis in the lumbar spine. We will start cutting down on her steroids as soon as we can. -4 cc: Gerardo Helton MD
[2019-02-04] MEDS: KLOR-CON PO SCH (20:02)
[2019-02-04] MEDS: DESYREL PO SCH (20:03)
[2019-02-04] MEDS: LOVENOX SUBQ SCH ×2 (20:03→21:55)
[2019-02-05] MEDS: ZOSYN 3.375 GM in NS 50 ML IV SCH ×4 (00:53→20:35)
[2019-02-05] MEDS: DUONEB (A & A) INH SCH ×6 (03:50→23:22)
[2019-02-05] MEDS: LINZESS PO SCH (05:59)
[2019-02-05] MEDS: SPIRIVA INH SCH (08:03)
[2019-02-05] MEDS: BREO ELLIPTA 100/25 MCG INH INH SCH (08:03)
[2019-02-05] MEDS: LEXAPRO PO SCH (08:27)
[2019-02-05] MEDS: MYCOSTATIN SUSP PO SCH ×3 (08:27→20:36)
[2019-02-05] MEDS: NEURONTIN PO SCH ×3 (08:27→20:36)
[2019-02-05] MEDS: LASIX PO SCH (08:27)
[2019-02-05] MEDS: SOLU-MEDROL IV SCH ×2 (08:27→20:39)
[2019-02-05] MEDS: PEPCID IV SCH ×2 (08:28→20:36)
[2019-02-05] MEDS: SODIUM CHLORIDE 0.9% INJ SCH ×2 (08:28→20:37)
--- NOTE | 2019-02-05 16:28 | PROGRESS NOTE ---
DATE: 02/05/2019 The patient is not feeling well. She has some expiratory wheezing. She is on IV steroids 20 mg Solu-Medrol q.12 h. and respiratory therapy. Overall condition is unchanged. Her oral intake is satisfactory. -4 cc: Gerardo Helton MD
[2019-02-05] MEDS: DESYREL PO SCH (20:36)
[2019-02-05] MEDS: KLOR-CON PO SCH (20:36)
[2019-02-05] MEDS: LOVENOX SUBQ SCH (20:36)
[2019-02-06] MEDS: ZOSYN 3.375 GM in NS 50 ML IV SCH ×2 (02:29→08:39)
[2019-02-06] MEDS: DUONEB (A & A) INH SCH ×3 (03:15→11:09)
[2019-02-06] MEDS: LINZESS PO SCH (06:03)
[2019-02-06] MEDS: MYCOSTATIN SUSP PO SCH ×2 (06:04→08:39)
[2019-02-06] MEDS: BREO ELLIPTA 100/25 MCG INH INH SCH (07:22)
[2019-02-06] MEDS: SPIRIVA INH SCH (07:22)
[2019-02-06 07:23] VITALS: BP 143/65
[2019-02-06] MEDS: NEURONTIN PO SCH (08:39)
[2019-02-06] MEDS: LEXAPRO PO SCH (08:39)
[2019-02-06] MEDS: SOLU-MEDROL IV SCH (08:39)
[2019-02-06] MEDS: LASIX PO SCH (08:39)
--- NOTE | 2019-02-06 09:35 | PROGRESS NOTE ---
DATE: 02/06/2019 Ms Recinos is feeling better. She has less amount of wheezing. Her lungs sound much clearer. She is on Solu-Medrol 20 mg b.i.d. and she will take prednisone 10 mg daily at home which she will continue, and we are going to discharge her today. -7 cc: Gerardo Helton MD
[2019-02-06] MEDS: PEPCID IV SCH (10:12)
[2019-02-06] MEDS: SODIUM CHLORIDE 0.9% INJ SCH (10:12)
--- NOTE | 2019-02-08 20:36 | DISCHARGE SUMMARY ---
ADMISSION DATE: 02/03/2019 DISCHARGE DATE: 02/06/2019 DIAGNOSIS OF ADMISSION: Ms. Recinos is a known case of COPD, was admitted with shortness of breath with acute exacerbation. LABORATORY AND DIAGNOSTICS: Chest x-ray revealed COPD, emphysematous changes. No acute changes noted. EKG revealed normal sinus rhythm. LABORATORY DATA: Revealed CBC was unremarkable. INR 0.84. Blood gases revealed pH 7.4, pCO2 58, PO2 was 72. Chemistry was negative. Troponins were negative. C-reactive proteins were 5.94. Electrolytes were normal. Blood sugar was 117. Urinalysis was unremarkable. COURSE IN THE HOSPITAL: Given IV Solu-Medrol, IV antibiotics, respiratory therapy. We had to adjust the Solu-Medrol, finally discharged her with prednisone which she takes at home. She was given swish and swallow nystatin because of the oral stomatitis, fungal stomatitis and NDDL stomatitis to be exact and she was given Augmentin prescription 5 mg b.i.d. for 7 days. She will be seen in the office in about 7 to 10 days. FINAL DIAGNOSES: 1. Acute exacerbation of COPD. 2. Mild hypertension. 3. Anxiety state. 4. Degenerative disk disease in the lumbar spine. cc: Gerardo Helton MD
== END 2019-02-06 13:05 | disposition home or self-care (01) | DRG 191 ==
LOC: ED 17:18 → 3N 19:47 → INTOOBSV 19:47
PROVIDERS: ADMIT Internal Medicine; ATTEND Internal Medicine
CPT/HCPCS: 71010; 71045; 80053; 81001; 82550; 82805; 83605; 83735; 83880; 84484; 85025; 85610; 85730; 86140; 87040; 93005; 93010; 94640; 94760; 94761; 96365; 96367; 96375; 99285; A9270; J1650; J1720; J2270; J2543; J2920; J2930; J3370; J7030; S0028

== ENCOUNTER 2019-04-30 15:43 | Inpatient (IN) ==
--- NOTE | 2019-04-30 16:38 | EKG Report ---
Test Performed on : 04/30/2019 4:32:22 PM Test Reason : COPD Acute Exacerbation Blood Pressure : / mmHG Vent. Rate : 092 BPM Atrial Rate : 092 BPM P-R Int : 146 ms QRS Dur : 096 ms QT Int : 376 ms P-R-T Axes : 071 073 073 degrees QTc Int : 464 ms Normal sinus rhythm. Normal ECG When compared with ECG of 01-FEB-2019 06:46, premature atrial complexes. are no longer present Nonspecific T wave abnormality now evident in Lateral leads Confirmed by Samuel MEADE, Iron Beckett ([id number]) on 04/30/2019 11:10:02 PM
[2019-04-30 16:47] LABS: ALLEN TEST YES; BE 8.7 mmoll (-3.0-3.0); BLOOD TYPE ARTERIAL; HCO3-(ACT) 31.5 mmoll (20.0-26.0); METHB 1.4 % (0.0-1.5); O2(CT) 19.5 mL/dL (15.0-23.0); PO2(98.6) 85 mmHg (60-100); SAMPLE BLOOD; SAO2 98.6 % (95.0-100.0); THB 15.4 g/dL (11.5-17.4)
--- NOTE | 2019-04-30 16:49 | Diag Imaging Result Doc PS360 ---
EXAM: CHEST-1 VIEW HISTORY: COPD Acute Exacerbation TECHNIQUE: Chest single view COMPARISON: 01/31/2019 FINDINGS: The lungs are well expanded. The heart is not enlarged. The vessels are not distended. There are no definite infiltrates although there is mild increased density in the left costophrenic angle similar to the prior study likely representing summation shadow artifact. No effusion identified. IMPRESSION: No acute abnormality Electronically signed by Kendrick Westbrook 04/30/2019 4:47 PM
[2019-04-30 16:50] LABS: MODALITY CANNULA
[2019-04-30 16:56] LABS: PCO2(98.6) 58 mmHg (35-45)
[2019-04-30] MEDS ORDERED: ROCEPHIN IV SCH (17:15)
[2019-04-30 18:09] LABS: AGAP 10; ALB/GLOB RATIO 1.1; ALBUMIN 3.9 g/dL (3.5-5.0); ALKALINE PHOSPHATASE 81 U/L (32-104); BUN 9 mg/dL (8-22); CALCIUM 9.3 mg/dL (8.8-10.2); CHLORIDE 100 mmol/L (98-107); COSMO 288; CREATININE 0.7 mg/dL (0.5-0.9); ESTIMATED GFR > 60; GLUCOSE 146 mg/dL (70-104); GOT 18 U/L (10-30); GPT 16 U/L (10-36); POTASSIUM 3.4 mmol/L (3.5-5.1); SODIUM 144 mmol/L (136-145); TCO2 34 mmol/L (25-35); TOTAL BILIRUBIN 0.19 mg/dL (0.20-1.00); TOTAL PROTEIN 7.4 g/dL (6.3-8.3)
[2019-04-30 18:21] LABS: BASO# 0.07 X1000 (0.0-0.2); BASO% 0.8 % (0.0-0.8); EOS# 0.21 X1000 (0.0-0.7); EOS% 2.3 % (0.0-10.0); HEMATOCRIT 47.8 % (37.0-47.0); HEMOGLOBIN 15.4 g/dL (12.0-16.0); LYMPH# 2.55 X1000 (1.2-3.4); LYMPH% 27.4 % (20.5-51.1); MCH 28.4 PG (27-31); MCHC 32.2 g/dL (33-37); MONO# 0.89 X1000 (0.11-0.59); MONO% 9.5 % (1.7-9.3); PLT 218 X1000 (130-400); RBC 5.43 XMIL (4.2-5.4); RDW 14.1 % (11.5-14.5); WBC 9.32 X1000 (4.8-10.8)
[2019-04-30] MEDS: NEURONTIN PO SCH (22:54)
[2019-04-30] MEDS: AMBIEN PO SCH (22:54)
[2019-04-30] MEDS: SOLU-MEDROL IV SCH (23:10)
[2019-04-30] MEDS: ROCEPHIN 1 GM in NS 50 ML IV SCH (23:28)
[2019-04-30] MEDS: ZITHROMAX 500 MG/NS 500 MG/250 ML IVPB IV SCH (23:53)
[2019-05-01] MEDS: NORCO-7.5 PO PRN ×3 (06:15→17:48)
--- NOTE | 2019-05-01 09:08 | PROGRESS NOTE ---
DATE: 05/01/2019 SUBJECTIVE: She is doing better. She has less wheezing. She had some CO2 retention. She has hypokalemia. Generalized weakness is there. She has some expiratory wheezing. Overall condition is unchanged. PLAN: We will continue with the current management on her. cc: Gerardo Helton MD
--- NOTE | 2019-05-01 09:20 | HISTORY AND PHYSICAL ---
HISTORY: Ms. Recinos who is a 74-year-old white female with a known case of COPD who has been staying home and using BiPAP at home as well as breathing treatments has been getting worse. Her shortness of breath is worse. She has persistent cough. She has not responded to outpatient therapy. Hence, we decided to put her in the hospital. For the details of personal, past, and family history, reveal history of borderline diabetes and mild hypertension. She has severe anxiety. She has chronic degenerative disk disease in the lumbar spine. She actually lives with her friend at times, and at times with her daughter. She cannot even walk 1/4 of a block, she gets out of breath very easily. She has been heavy smoker, does not drink. She continues to smoke. ALLERGIES: 1. Ibuprofen. 2. Levofloxacin. 3. Colistimethate sodium. MEDICATIONS: 1. DuoNeb. 2. Furosemide. 3. Gabapentin. 4. Hydrocodone. 5. Nicotine patch. 6. KCl. 7.vitamins 8. Spiriva. REVIEW OF SYSTEMS: Other than generalized weakness and shortness of breath is noncontributory. PHYSICAL EXAMINATION: VITAL SIGNS: Reveal temperature normal, pulse 100 per minute, respiratory rate 22 per minute, and blood pressure was 130/76. HEENT: Head normocephalic. PERRLA. Fundus examination normal. NECK: Supple. JVP normal. ENT: Examination unremarkable. LYMPHATIC: There is no evidence of lymphadenopathy, thyroid enlargement, pedal edema, calf tenderness, anemia, cyanosis or clubbing. Pedal pulses well felt. BREASTS: Exam not done. LUNGS: Chest normal inspection. Lungs reveal bilateral expiratory wheezing. PMI in the normal position. HEART: Sounds normal. No murmur, gallop or rub noted. ABDOMEN: Nondistended. Hernial orifices normal. No guarding, rigidity, free fluid, masses, or organomegaly. Bowel sounds normal. RECTAL: Deferred. [employer]: Functions normal. Cranial nerves normal. Motor and sensory system examination are unremarkable. Deep tendon reflexes normal. Plantars downgoing. Skull and spine examination normal for age. No cerebellar signs or signs of meningeal irritation on locomotor exam. SKIN: Unremarkable. CLINICAL IMPRESSION: Acute exacerbation of COPD. The patient has extreme degree of weakness, possibly hypokalemia and anemia. PLAN: Start her breathing treatment, IV antibiotics, and Solu-Medrol. cc: Gerardo Helton MD MTDD
[2019-05-01] MEDS: SOLU-MEDROL IV SCH ×2 (09:42→17:48)
[2019-05-01] MEDS: NICODERM PATCH TD SCH (09:42)
[2019-05-01] MEDS: LASIX PO SCH (09:43)
[2019-05-01] MEDS: NEURONTIN PO SCH ×2 (09:43→22:53)
[2019-05-01] MEDS: KLOR-CON PO SCH (22:52)
[2019-05-01] MEDS: AMBIEN PO SCH (22:52)
[2019-05-01] MEDS: ROCEPHIN 1 GM in NS 50 ML IV SCH (22:52)
[2019-05-02] MEDS: ZITHROMAX 500 MG/NS 500 MG/250 ML IVPB IV SCH (00:07)
[2019-05-02] MEDS: SOLU-MEDROL IV SCH ×3 (00:07→19:58)
[2019-05-02] MEDS: NORCO-7.5 PO PRN ×3 (03:13→20:15)
[2019-05-02] MEDS: SPIRIVA INH SCH (07:44)
--- NOTE | 2019-05-02 09:35 | PROGRESS NOTE ---
DATE: 05/02/2019 Ms. Recinos is very nervous and depressed on account of family problems. Her breathing is improving. I am going to reduce the Solu-Medrol to 40 mg every 12 hours. She has COPD with acute exacerbation. -9 cc: Gerardo Helton MD
[2019-05-02] MEDS: NICODERM PATCH TD SCH (09:56)
[2019-05-02] MEDS: LASIX PO SCH (09:56)
[2019-05-02] MEDS: NEURONTIN PO SCH ×2 (09:56→20:15)
[2019-05-02] MEDS: DUONEB (A & A) INH PRN (16:11)
[2019-05-02] MEDS: AMBIEN PO SCH (20:15)
[2019-05-02] MEDS: KLOR-CON PO SCH (20:15)
[2019-05-02] MEDS: ROCEPHIN 1 GM in NS 50 ML IV SCH (23:59)
[2019-05-03] MEDS: SOLU-MEDROL IV SCH ×3 (00:51→23:45)
[2019-05-03] MEDS: ZITHROMAX 500 MG/NS 500 MG/250 ML IVPB IV SCH (00:51)
[2019-05-03] MEDS: LASIX PO SCH (10:21)
[2019-05-03] MEDS: NICODERM PATCH TD SCH (10:21)
[2019-05-03] MEDS: NEURONTIN PO SCH ×3 (10:21→20:04)
[2019-05-03] MEDS: NORCO-7.5 PO PRN ×2 (10:21→19:39)
[2019-05-03] MEDS: DUONEB (A & A) INH PRN ×3 (11:03→18:54)
[2019-05-03] MEDS: SPIRIVA INH SCH (11:05)
--- NOTE | 2019-05-03 12:06 | PROGRESS NOTE ---
DATE: 05/03/2019 SUBJECTIVE: Ms. Recinos is improving today. She still has wheezing. We will continue the Solu- Medrol 40 mg p.o. every 12 hours. She is still depressed. We will also start Lexapro 20 mg daily. Overall condition is slowly improving. We will continue IV antibiotics. cc: Gerardo Helton MD
[2019-05-03] MEDS: AMBIEN PO SCH ×2 (19:39→20:03)
[2019-05-03] MEDS: LEXAPRO PO SCH ×2 (19:39→20:03)
[2019-05-03] MEDS: KLOR-CON PO SCH ×2 (19:40→20:03)
[2019-05-03] MEDS: ROCEPHIN 1 GM in NS 50 ML IV SCH (23:44)
[2019-05-04] MEDS: ZITHROMAX 500 MG/NS 500 MG/250 ML IVPB IV SCH ×2 (00:16→23:55)
[2019-05-04] MEDS: SPIRIVA INH SCH (07:32)
[2019-05-04] MEDS: DUONEB (A & A) INH PRN ×4 (07:32→19:23)
[2019-05-04] MEDS: LASIX PO SCH (09:53)
[2019-05-04] MEDS: NICODERM PATCH TD SCH (09:53)
[2019-05-04] MEDS: NEURONTIN PO SCH ×2 (09:53→20:34)
[2019-05-04] MEDS: KLOR-CON PO SCH ×2 (09:53→20:35)
[2019-05-04] MEDS: NORCO-7.5 PO PRN ×2 (09:54→18:33)
[2019-05-04] MEDS: SOLU-MEDROL IV SCH ×2 (13:59→23:29)
--- NOTE | 2019-05-04 16:37 | PROGRESS NOTE ---
DATE: 05/04/2019 This is the progress note for Dr. Helton. A 74-year-old white female admitted to the hospital for COPD exacerbation. REVIEW OF SYSTEMS: Breathing is better. No chest pain, shortness of breath. Rest of the review of systems none reported. PAST MEDICAL HISTORY: Reviewed. PAST SURGICAL HISTORY: Reviewed. MEDICINES: Reviewed. ALLERGIES: Reported to ibuprofen, Levaquin. EXAMINATION: The patient is not respiratory distress on nasal cannula. Temperature is 97.9 degrees, pulse 70, blood pressure 150/70, 98% on room air.HEENT: Atraumatic, normocephalic. Pupils equal, react to light. Neck: Supple. Chest: Bilateral air entry, scattered wheezing. Distant heart sounds. Breast exam deferred. Belly soft, obese, nontender. No peripheral edema. No obvious deficits. LABS: Reviewed on 04/30/2019. ASSESSMENT AND PLAN: 1. Acute chronic obstructive pulmonary disease exacerbation currently receiving nebulizers, intravenous Zithromax, intravenous ceftriaxone, intravenous steroids 40 mg q.12. 2. Chronic nicotine abuse on Nicotrol patch, carboxyhemoglobin was high. 3. Continue bronchodilators with Spiriva. 4. Depression on Lexapro 20 mg daily. 5. Chronic neuropathy pain on Neurontin and hydrocodone. Ambien for sleep. Continue present treatment. Just add DVT prophylaxis with Lovenox. LEVEL OF DOCUMENTATION: 35 minutes. cc: MD Gerardo Escalante MD
[2019-05-04] MEDS: AMBIEN PO SCH (20:35)
[2019-05-04] MEDS: LEXAPRO PO SCH (20:35)
[2019-05-04] MEDS: ROCEPHIN 1 GM in NS 50 ML IV SCH (23:29)
[2019-05-05] MEDS: SPIRIVA INH SCH (07:50)
[2019-05-05] MEDS: DUONEB (A & A) INH PRN ×3 (07:50→15:39)
[2019-05-05] MEDS: NICODERM PATCH TD SCH (08:17)
[2019-05-05] MEDS: LASIX PO SCH (08:18)
[2019-05-05] MEDS: NEURONTIN PO SCH ×2 (08:18→21:22)
[2019-05-05] MEDS: KLOR-CON PO SCH ×2 (08:18→21:23)
[2019-05-05] MEDS: LOVENOX SUBQ SCH (08:18)
[2019-05-05] MEDS: NORCO-7.5 PO PRN (08:23)
[2019-05-05] MEDS ORDERED: BLISTEX MEDICATED BERRY LIP BALM TOP PRN (10:23)
--- NOTE | 2019-05-05 12:08 | PROGRESS NOTE ---
DATE: 05/05/2019 SUBJECTIVE: A 74-year-old, white female. Basically no complaints. Decreased wheezing. Anxious to go home. No shortness of breath. No chest pain. REVIEW OF SYSTEMS: None reported. PHYSICAL EXAMINATION: Temperature is 98 degrees, pulse 87, blood pressure 172/83, 94% on room air. Slightly heavyset. HEENT Examination: Within normal limits. Neck: Supple. Chest: There is bilateral wheezing, decreased wheezing. Distant heart sounds. Belly is soft, nontender. Rest of the exam is benign. INVESTIGATIONS: No labs were done. ASSESSMENT AND PLAN: 1. Acute chronic obstructive pulmonary disease exacerbation, on bronchodilators, Zithromax, ceftriaxone, intravenous steroids. 2. Nicotine abuse. Nicotrol patch. 3. Deep venous thrombosis and gastrointestinal prophylaxis as per order sheet. 4. We will initiate vaccination protocol prior to the discharge. Dr. Helton is going to follow up. LEVEL OF DOCUMENTATION: 25 minutes. cc: MD Gerardo Escalante MD
[2019-05-05] MEDS: SOLU-MEDROL IV SCH (14:21)
[2019-05-05] MEDS: LEXAPRO PO SCH (21:23)
[2019-05-05] MEDS: AMBIEN PO SCH (21:26)
[2019-05-05] MEDS: ROCEPHIN 1 GM in NS 50 ML IV SCH (22:09)
[2019-05-05] MEDS: ZITHROMAX 500 MG/NS 500 MG/250 ML IVPB IV SCH (23:40)
[2019-05-06] MEDS: SOLU-MEDROL IV SCH ×2 (06:14→18:15)
[2019-05-06] MEDS: DUONEB (A & A) INH PRN ×4 (07:49→19:30)
[2019-05-06] MEDS: SPIRIVA INH SCH (07:49)
--- NOTE | 2019-05-06 09:31 | PROGRESS NOTE ---
DATE: 05/06/2019 SUBJECTIVE: Ms. Recinos is not feeling good. She is wheezing more. She says she is feeling weaker. She is on Solu-Medrol 40 mg IV q.12 hours and on antibiotics namely with Rocephin and azithromycin as well as respiratory therapy. We will encourage her to eat better and take the medications. We will decide later on. At the present time, I am not going to make any changes in her treatment. cc: Gerardo Helton MD
[2019-05-06] MEDS: LOVENOX SUBQ SCH (11:14)
[2019-05-06] MEDS: KLOR-CON PO SCH ×2 (11:14→21:30)
[2019-05-06] MEDS: NICODERM PATCH TD SCH (11:14)
[2019-05-06] MEDS: NEURONTIN PO SCH ×2 (11:14→21:30)
[2019-05-06] MEDS: NORCO-7.5 PO PRN ×2 (11:14→18:41)
[2019-05-06] MEDS: LASIX PO SCH (11:14)
[2019-05-06] MEDS: AMBIEN PO SCH (21:31)
[2019-05-06] MEDS: LEXAPRO PO SCH (21:31)
[2019-05-06] MEDS: ROCEPHIN 1 GM in NS 50 ML IV SCH (23:40)
[2019-05-07] MEDS: ZITHROMAX 500 MG/NS 500 MG/250 ML IVPB IV SCH ×2 (00:55→23:31)
[2019-05-07] MEDS: NORCO-7.5 PO PRN ×3 (03:20→20:31)
[2019-05-07] MEDS: ZOFRAN IV PRN (03:21)
[2019-05-07] MEDS: SOLU-MEDROL IV SCH ×2 (05:22→16:22)
[2019-05-07] MEDS: DUONEB (A & A) INH PRN ×2 (07:59→20:10)
[2019-05-07] MEDS: SPIRIVA INH SCH (07:59)
[2019-05-07] MEDS: LASIX PO SCH (08:50)
[2019-05-07] MEDS: KLOR-CON PO SCH ×2 (08:50→20:31)
[2019-05-07] MEDS: LOVENOX SUBQ SCH (08:50)
[2019-05-07] MEDS: NEURONTIN PO SCH ×2 (08:50→20:32)
[2019-05-07] MEDS: NICODERM PATCH TD SCH (08:50)
--- NOTE | 2019-05-07 09:53 | PROGRESS NOTE ---
DATE: 05/07/2019 SUBJECTIVE: Ms. Recinos is still not feeling well. OBJECTIVE: Her lungs still reveal some wheezing. She is depressed. Heart sounds are normal. She is very weak. PLAN: I have encouraged her to walk in the room and will try to cut down on her Solu-Medrol. -4 cc: Gerardo Helton MD
[2019-05-07] MEDS: LEXAPRO PO SCH (20:31)
[2019-05-07] MEDS: AMBIEN PO SCH (20:32)
[2019-05-07] MEDS: ROCEPHIN 1 GM in NS 50 ML IV SCH (22:46)
[2019-05-08] MEDS: DUONEB (A & A) INH PRN ×4 (03:25→23:14)
[2019-05-08] MEDS: SOLU-MEDROL IV SCH ×2 (04:11→17:05)
[2019-05-08] MEDS: SPIRIVA INH SCH (07:54)
[2019-05-08] MEDS: NORCO-7.5 PO PRN ×2 (07:59→17:05)
--- NOTE | 2019-05-08 09:42 | PROGRESS NOTE ---
DATE: 05/08/2019 She is recovering with acute exacerbation of respiratory failure. She has severe COPD. She feels weak. We are going to repeat her ABGs as well as a BMP. We will make some kind of arrangements for rehab placement on her. -5 cc: Gerardo Helton MD
[2019-05-08 10:03] LABS: ALLEN TEST NO; BE 9.2 mmoll (-3.0-3.0); BLOOD TYPE ARTERIAL; HCO3-(ACT) 31.9 mmoll (20.0-26.0); METHB 1.2 % (0.0-1.5); O2(CT) 20.5 mL/dL (15.0-23.0); O2HB 91.7 % (95.0-99.0); PO2(98.6) 64 mmHg (60-100); SAMPLE BLOOD; SAO2 94.9 % (95.0-100.0); THB 15.9 g/dL (11.5-17.4); pH(98.6) 7.37 (7.35-7.45)
[2019-05-08 10:06] LABS: MODALITY CANNULA
[2019-05-08 10:07] LABS: PCO2(98.6) 65 mmHg (35-45)
[2019-05-08] MEDS: NEURONTIN PO SCH ×2 (10:23→21:10)
[2019-05-08] MEDS: NICODERM PATCH TD SCH (10:23)
[2019-05-08] MEDS: KLOR-CON PO SCH ×2 (10:23→21:10)
[2019-05-08] MEDS: LASIX PO SCH (10:23)
[2019-05-08] MEDS: LOVENOX SUBQ SCH (10:24)
[2019-05-08] MEDS: ZOFRAN IV PRN (14:11)
[2019-05-08] MEDS: AMBIEN PO SCH (21:10)
[2019-05-08] MEDS: LEXAPRO PO SCH (21:11)
[2019-05-08] MEDS: ROCEPHIN 1 GM in NS 50 ML IV SCH (22:04)
[2019-05-08] MEDS: ZITHROMAX 500 MG/NS 500 MG/250 ML IVPB IV SCH (23:38)
[2019-05-09] MEDS: NORCO-7.5 PO PRN ×3 (03:25→21:31)
[2019-05-09] MEDS: DUONEB (A & A) INH PRN ×5 (03:36→22:53)
[2019-05-09] MEDS: SOLU-MEDROL IV SCH (04:29)
[2019-05-09] MEDS: SPIRIVA INH SCH (08:03)
[2019-05-09 08:07] LABS: AGAP 10; BUN 27 mg/dL (8-22); CALCIUM 8.8 mg/dL (8.8-10.2); CHLORIDE 93 mmol/L (98-107); COSMO 281; CREATININE 0.8 mg/dL (0.5-0.9); ESTIMATED GFR > 60; GLUCOSE 141 mg/dL (70-104); POTASSIUM 5.1 mmol/L (3.5-5.1); SODIUM 137 mmol/L (136-145); TCO2 34 mmol/L (25-35)
[2019-05-09] MEDS: KLOR-CON PO SCH ×2 (08:21→21:31)
[2019-05-09] MEDS: NICODERM PATCH TD SCH (08:21)
[2019-05-09] MEDS: NEURONTIN PO SCH ×2 (08:21→21:31)
[2019-05-09] MEDS: LOVENOX SUBQ SCH (08:21)
[2019-05-09] MEDS: LASIX PO SCH (08:21)
--- NOTE | 2019-05-09 11:35 | PROGRESS NOTE ---
DATE: 05/09/2019 Ms. Recinos is doing better. She has continuous wheezing. She is using BiPAP at nighttime. She has a bed at [facility] probably tomorrow for rehab, and we will discharge her tomorrow if possible. -6 cc: Gearrdo Helton MD
[2019-05-09] MEDS: AMBIEN PO SCH (21:31)
[2019-05-09] MEDS: PREDNISONE PO SCH (21:31)
[2019-05-09] MEDS: LEXAPRO PO SCH (21:31)
[2019-05-09] MEDS: ROCEPHIN 1 GM in NS 50 ML IV SCH (22:17)
[2019-05-09] MEDS: ZITHROMAX 500 MG/NS 500 MG/250 ML IVPB IV SCH (23:18)
[2019-05-10] MEDS: DUONEB (A & A) INH PRN ×5 (04:23→19:23)
[2019-05-10] MEDS: NORCO-7.5 PO PRN ×2 (04:28→16:51)
[2019-05-10] MEDS: SPIRIVA INH SCH (07:26)
[2019-05-10] MEDS: LASIX PO SCH (09:03)
[2019-05-10] MEDS: KLOR-CON PO SCH ×2 (09:03→20:09)
[2019-05-10] MEDS: NICODERM PATCH TD SCH (09:03)
[2019-05-10] MEDS: NEURONTIN PO SCH ×2 (09:04→20:10)
[2019-05-10] MEDS: PREDNISONE PO SCH ×3 (09:05→20:10)
[2019-05-10] MEDS: LOVENOX SUBQ SCH (09:05)
--- NOTE | 2019-05-10 12:22 | PROGRESS NOTE ---
DATE: 05/10/2019 SUBJECTIVE: Ms Recinos was shook up this morning. She says her eyes are rolling, mouth was dry and she thought she had a stroke. However, clinically speaking, she has no stroke. OBJECTIVE: Her electrolytes are normal. BUN is 27, creatinine 0.8. Blood sugar was 141. Her lungs sound clear with some wheezing. Heart sounds are normal. PLAN: She was supposed to be going to the [facility] today; however, she cannot go there on account of unavailability of the beds. I have changed her Solu-Medrol to prednisone. -8 cc: Gerardo Helton MD MTDD
[2019-05-10] MEDS: AMBIEN PO SCH (20:09)
[2019-05-10] MEDS: LEXAPRO PO SCH (20:09)
[2019-05-10] MEDS: ROCEPHIN 1 GM in NS 50 ML IV SCH (23:09)
[2019-05-11] MEDS: SPIRIVA INH SCH (07:50)
[2019-05-11] MEDS: LASIX PO SCH (09:00)
[2019-05-11] MEDS: NEURONTIN PO SCH ×2 (09:00→20:39)
[2019-05-11] MEDS: NORCO-7.5 PO PRN ×3 (09:00→22:41)
[2019-05-11] MEDS: PREDNISONE PO SCH ×2 (09:00→20:39)
[2019-05-11] MEDS: LOVENOX SUBQ SCH (09:00)
[2019-05-11] MEDS: KLOR-CON PO SCH ×2 (09:00→20:39)
[2019-05-11] MEDS: NICODERM PATCH TD SCH (09:01)
--- NOTE | 2019-05-11 10:03 | PROGRESS NOTE ---
DATE: 05/11/2019 SUBJECTIVE: The patient says I do not know what's wrong with me. I explained to her that she had some COPD and we are treating her for that. She says she just did not feel well but she could not explain it. She does look a little bit anxious. OBJECTIVE: Blood pressure is 142/72, respirations 18, pulse 73, temperature 97.9 degrees Fahrenheit. HEENT: She is normocephalic. PERRLA. Throat clear. Lungs have occasional wheeze anteriorly but otherwise sound fairly clear. Heart Regular rate and rhythm without murmurs, gallops, or friction rubs. Abdomen Soft. Active bowel sounds. No organomegaly or tenderness. Neurologic Exam intact grossly. ASSESSMENT: Exacerbation of chronic obstructive pulmonary disease. PLAN: Awaiting rehab placement on Monday. cc: MD Gerardo Angeles Jr, MD
[2019-05-11] MEDS: DUONEB (A & A) INH PRN ×2 (11:16→19:18)
[2019-05-11] MEDS: XANAX PO PRN ×2 (16:26→22:42)
[2019-05-11] MEDS: AMBIEN PO SCH (20:39)
[2019-05-11] MEDS: LEXAPRO PO SCH (20:39)
[2019-05-11] MEDS: ROCEPHIN 1 GM in NS 50 ML IV SCH (22:38)
[2019-05-12] MEDS: DUONEB (A & A) INH PRN ×4 (07:32→19:18)
[2019-05-12] MEDS: SPIRIVA INH SCH (07:34)
[2019-05-12] MEDS: XANAX PO PRN ×2 (09:29→15:38)
[2019-05-12] MEDS: PREDNISONE PO SCH ×2 (09:29→20:23)
[2019-05-12] MEDS: LASIX PO SCH (09:29)
[2019-05-12] MEDS: LOVENOX SUBQ SCH (09:29)
[2019-05-12] MEDS: KLOR-CON PO SCH ×2 (09:29→20:22)
[2019-05-12] MEDS: NICODERM PATCH TD SCH (09:29)
[2019-05-12] MEDS: NORCO-7.5 PO PRN ×2 (09:29→18:07)
[2019-05-12] MEDS: NEURONTIN PO SCH ×2 (09:29→20:22)
[2019-05-12] MEDS ORDERED: MILK OF MAGNESIA PO ONE (11:48)
--- NOTE | 2019-05-12 12:05 | PROGRESS NOTE ---
DATE: 05/12/2019 SUBJECTIVE: The patient says her breathing is better, but she feels constipated and has not had a bowel movement in several days. OBJECTIVE: Vital Signs: Blood pressure is 127/68, respirations 21, pulse 79, temperature 98.3 degrees Fahrenheit. HEENT: She is normocephalic. EOMS intact. PERRLA. Throat clear. Lungs: Sound clear to auscultation and percussion without rhonchi, rales, or wheezes. Heart: Regular rate and rhythm without murmurs, gallops, or friction rubs. Abdomen: Soft. Active bowel sounds. No organomegaly or tenderness. Neurological: Intact grossly. ASSESSMENT: 1. Exacerbation of chronic obstructive pulmonary disease, improving. 2. Constipation. PLAN: Continue care. Will get her something for her constipation. cc: MD Gerardo Angeles Jr, MD
[2019-05-12] MEDS: AMBIEN PO SCH (20:22)
[2019-05-12] MEDS: LEXAPRO PO SCH (20:22)
[2019-05-12] MEDS: ROCEPHIN 1 GM in NS 50 ML IV SCH (23:41)
[2019-05-13] MEDS: SPIRIVA INH SCH (07:47)
[2019-05-13] MEDS: DUONEB (A & A) INH PRN (07:47)
[2019-05-13 07:50] VITALS: BP 132/61
[2019-05-13] MEDS: KLOR-CON PO SCH (08:17)
[2019-05-13] MEDS: NEURONTIN PO SCH (08:17)
[2019-05-13] MEDS: XANAX PO PRN (08:17)
[2019-05-13] MEDS: LOVENOX SUBQ SCH (08:18)
[2019-05-13] MEDS: LASIX PO SCH (08:18)
[2019-05-13] MEDS: PREDNISONE PO SCH (08:18)
[2019-05-13] MEDS: NICODERM PATCH TD SCH (08:18)
[2019-05-13] MEDS: NORCO-7.5 PO PRN ×2 (08:19→11:46)
--- NOTE | 2019-05-13 09:14 | PROGRESS NOTE ---
DATE: 05/13/2019 SUBJECTIVE: Ms. Recinos says she feels funny in the head. Otherwise, she is feeling good. OBJECTIVE: Lungs: Reveal minimal wheezing. Heart: Heart sounds are normal. Vital Signs: Stable. PLAN: We are going to discharge her to [facility] rehab. -6 cc: Gerardo Helton MD
--- NOTE | 2019-05-13 10:04 | DISCHARGE SUMMARY ---
ADMISSION DATE: 04/30/2019 DISCHARGE DATE: 05/13/2019 HOSPITAL COURSE: Ms. Recinos, who is a 74-year-old white female with a known case of COPD, was admitted with severe shortness of breath. She had CO2 retention, respiratory failure. She was placed on BiPAP breathing machine at bedtime. Oxygen was continued. IV antibiotics as well as IV Solu-Medrol and respiratory therapy were continued. Solu-Medrol was tapered. Later on, she was placed on prednisone 10 mg b.i.d., which we will cut down to 10 mg daily. She will be discharged to [facility] care home today. FINAL DIAGNOSES: 1. Acute exacerbation of chronic obstructive pulmonary disease. 2. Degenerative disk disease in the lumbar spine. 3. Severe anxiety with depression, which is probably situational. cc: Gerardo Helton MD
[2019-05-13] MEDS ORDERED: PNEUMOVAX 23 IM ONE (13:18)
[2019-05-13] MEDS ORDERED: FLU VACCINE IM ONE (13:38)
--- NOTE | 2019-05-21 05:03 | DISCHARGE SUMMARY ---
ADMISSION DATE: 04/30/2019 DISCHARGE DATE: 05/13/2019 ADDENDUM: Ms. Recinos was admitted with shortness of breath. She has a known case of COPD. She had acute on chronic respiratory failure. cc: Gerardo Helton MD
== END 2019-05-13 14:29 | DRG 190 ==
LOC: DIRADM 15:43 → EDIPHOLD 15:53 → 3N 20:22
PROVIDERS: ADMIT Internal Medicine; ATTEND Internal Medicine